=== PATIENT | male | born 1960 | race African-American/Black ===

== ENCOUNTER 2018-05-22 22:08 | Inpatient (IN) | payer MEDICARE, MEDICAID ==
[~2018-05-22] VITALS: Ht 190.5 cm; Wt 104.3 kg
[~2018-05-22 22:08] MED LIST: ASPIRIN81 MG ORAL; DIOVAN160 MG ORAL; ISENTRESS400 MG ORAL; SEROQUEL200 MG ORAL; TRUVADA 200 MG1 EAC1 ORAL
--- NOTE | 2018-05-22 22:27 | Emergency Room Report ---
History of Present Illness General Chief Complaint: Medical Clearance Source: Patient Present Illness HPI Patient is a 57-year-old male presented after increased chest pain. Patient reports having onset of symptoms tonight after being arrested. About 2 hours prior to arrival. Patient reports having prior history of heart attack. He reports having a recent cocaine use. Patient is currently in custody with [employer]. Allergies: Coded Allergies: No Known Allergies (Verified , 11/17/08) Patient History Reviewed Nursing Documentation: PMH: Agreed; PSxH: Agreed Nursing Documentation-PMH Past Medical History: No History, Except For Hx Cardiac Problems: Yes Hx Hypertension: Yes Hx Cancer: No Hx Gastrointestinal Problems: No Hx Neurological Problems: No Review of Systems All Other Systems: negative except mentioned in HPI Physical Exam Vital Signs Date Time Temp Pulse Resp B/P (MAP) Pulse Ox O2 Delivery O2 Flow Rate FiO2 05/22/18 22:03 98.4 112 18 130/78 98 Room Air Sp02 EP Interpretation: reviewed, normal General Appearance: normal inspection, well appearing, no apparent distress, alert, GCS 15 Head: atraumatic ENT: normal ENT inspection, hearing grossly normal, normal voice Neck: normal inspection, full range of motion, supple, no bony tend Respiratory: normal inspection, lungs clear, normal breath sounds, no respiratory distress, no retraction, no wheezing Cardiovascular #1: regular rate, rhythm, no edema Gastrointestinal: normal inspection, normal bowel sounds, non tender, soft, no guarding, no hernia Genitourinary: no CVA tenderness Musculoskeletal: normal inspection, back normal, normal range of motion Neurologic: normal inspection, alert, oriented x3, responsive, machine plug shaper III-XII nml as tested, speech normal Psychiatric: normal inspection, judgement/insight normal, mood/affect normal Skin: normal inspection, normal color, no rash Medical Decision Making Diagnostic Impression: Primary Impression: Chest pain Additional Impressions: Non-STEMI (non-ST elevated myocardial infarction) Cocaine abuse ER Course Patient presented for chest pain. Differential diagnosis included but was not limited to acute coronary syndrome, pulmonary embolism, pneumonia, aortic dissection, shingles, pneumothorax, aortic dissection, esophageal rupture, pericarditis. Because of complexity of patient's case laboratory testing and imaging studies were ordered. EKG interpreted by me showed normal sinus rhythm with a rate of 102 with some inferior Q waves. There are no acute ST or T wave changes noted. Patient reports having prior myocardial infarction. He reports having recent cocaine use. Patient states he is currently a smoker. Patient was given breathing treatment as well as aspirin. Patient was noted to have some continued pain. He was given Ativan due to cocaine use. CT of chest was ordered. Repeat EKG showed normal sinus rhythm with some premature atrial contractions and market motion artifact. Patient's laboratory testing was notable for initially negative troponin. A repeat troponin showed some mild elevation. Patient will be admitted to the hospital for further evaluation and treatment of chest discomfort. Patient cannot be medically cleared at this time. Patient will be admitted for further monitoring. Dr. Irby was contacted for inpatient management due to need for inpatient monitoring and treatment. Labs Test 05/22/18 22:50 05/23/18 00:51 White Blood Count 7.8 K/UL (4.8-10.8) Red Blood Count 4.87 M/UL (4.70-6.10) Hemoglobin 14.2 G/DL (14.2-18.0) Hematocrit 43.5 % (42.0-52.0) Mean Corpuscular Volume 89 FL (80-99) Mean Corpuscular Hemoglobin 29.1 PG (27.0-31.0) Mean Corpuscular Hemoglobin Concent 32.6 G/DL (32.0-36.0) Red Cell Distribution Width 12.6 % (11.6-14.8) Platelet Count 206 K/UL (150-450) Mean Platelet Volume 9.0 FL (6.5-10.1) Neutrophils (%) (Auto) 72.0 % (45.0-75.0) Lymphocytes (%) (Auto) 18.5 % (20.0-45.0) Monocytes (%) (Auto) 6.3 % (1.0-10.0) Eosinophils (%) (Auto) 1.7 % (0.0-3.0) Basophils (%) (Auto) 1.6 % (0.0-2.0) Sodium Level 142 MMOL/L (136-145) Potassium Level 3.6 MMOL/L (3.5-5.1) Chloride Level 106 MMOL/L (98-107) Carbon Dioxide Level 25 MMOL/L (21-32) Anion Gap 11 mmol/L (5-15) Blood Urea Nitrogen 14 mg/dL (7-18) Creatinine 1.2 MG/DL (0.55-1.30) Estimat Glomerular Filtration Rate > 60 mL/min (>60) Glucose Level 97 MG/DL (74-106) Calcium Level 9.5 MG/DL (8.5-10.1) Total Bilirubin 0.5 MG/DL (0.2-1.0) Aspartate Amino Transf (AST/SGOT) 16 U/L (15-37) Alanine Aminotransferase (ALT/SGPT) 19 U/L (12-78) Alkaline Phosphatase 44 U/L (46-116) Total Creatine Kinase 177 U/L (26-308) Creatine Kinase MB 1.5 NG/ML (0.0-3.6) Creatine Kinase MB Relative Index 0.8 Total Protein 8.6 G/DL (6.4-8.2) Albumin 4.1 G/DL (3.4-5.0) Globulin 4.5 g/dL Albumin/Globulin Ratio 0.9 (1.0-2.7) Lipase 159 U/L (73-393) Troponin I 0.505 ng/mL (0.000-0.056) EKG Diagnostic Results Rate: normal Rhythm: NSR ST Segments: other - inferior q waves Last Vital Signs Date Time Temp Pulse Resp B/P (MAP) Pulse Ox O2 Delivery O2 Flow Rate FiO2 05/22/18 22:03 98.4 112 18 130/78 98 Room Air Status: unchanged Disposition: ADMITTED INPATIENT Condition: Serious Scripts Lisinopril (LISINOPRIL*) 5 Mg Tablet 5 MG ORAL DAILY for 30 Days, TAB Prov: Dontae Irby MD 05/27/18 Atorvastatin Calcium* (LIPITOR*) 20 Mg Tablet 20 MG ORAL BEDTIME for 30 Days, TAB Prov: Dontae Irby MD 05/27/18 Xander Rm MD May 22, 2018 22:27
[2018-05-22] MEDS ORDERED: LORazepam Inj 2mg/ml 1ml IV ONE (22:30)
--- NOTE | 2018-05-22 22:40 | NUR ---
ED Nurse Note: Blood sample collected and sent to Lab.
[2018-05-22 22:45] VITALS: BP 131/75
--- NOTE | 2018-05-22 23:08 | NUR ---
ED Nurse Note: Meds given as ordered.
[2018-05-22 23:17] LABS: BASOPHILS % (AUTO) 1.6 % (0.0-2.0); EOSINOPHILS % (AUTO) 1.7 % (0.0-3.0); HEMATOCRIT 43.5 % (42.0-52.0); HEMOGLOBIN 14.2 G/DL (14.2-18.0); LYMPHOCYTES % (AUTO) 18.5 % (20.0-45.0); MEAN CORPUSCULAR VOLUME 89 FL (80-99); MONOCYTES % (AUTO) 6.3 % (1.0-10.0); PLATELET COUNT 206 K/UL (150-450); RED BLOOD COUNT 4.87 M/UL (4.70-6.10); RED CELL DISTRIBUTION WIDTH 12.6 % (11.6-14.8); WHITE BLOOD COUNT 7.8 K/UL (4.8-10.8)
[2018-05-22 23:32] LABS: ANION GAP 11 mmol/L (5-15); BLOOD UREA NITROGEN 14 mg/dL (7-18); CALCIUM 9.5 MG/DL (8.5-10.1); CARBON DIOXIDE 25 MMOL/L (21-32); CHLORIDE 106 MMOL/L (98-107); CREATININE 1.2 MG/DL (0.55-1.30); POTASSIUM 3.6 MMOL/L (3.5-5.1); SODIUM 142 MMOL/L (136-145)
[2018-05-22 23:45] LABS: ALANINE AMINOTRANSFERASE 19 U/L (12-78); ALBUMIN 4.1 G/DL (3.4-5.0); ALBUMIN/GLOBULIN RATIO 0.9 (1.0-2.7); ALKALINE PHOSPHATASE 44 U/L (46-116); ASPARTATE AMINO TRANSFERASE 16 U/L (15-37); BILIRUBIN,TOTAL 0.5 MG/DL (0.2-1.0); CKMB 1.5 NG/ML (0.0-3.6); CREATINE KINASE 177 U/L (26-308)
[2018-05-23] MEDS ORDERED: Albuterol/Ipratropium 3ml neb HHN ONE (01:00)
--- NOTE | 2018-05-23 01:07 | NUR ---
ED Nurse Note: Repeat trop collected and sent to Lab.
[2018-05-23] MEDS ORDERED: Isovue-370 150ml vial INJ PRN (01:45)
[2018-05-23] MEDS ORDERED: QUETIAPINE FUMA50 MG ORAL (02:08)
[2018-05-23] MEDS ORDERED: ROZEREM8 MG PO (02:08)
--- NOTE | 2018-05-23 04:35 | NUR ---
TRANSFER TO FLOOR: Patient transferred to Tel/214 as ordered . Report given to Padmini/WILMA . Belongings sent with Pt and rechecked with RN.
[2018-05-23] MEDS ORDERED: Morphine Sulfate 2mg/ml Inj(IV/IM USE ONLY) IVP SCH (05:00)
[2018-05-23 06:49] LABS: CHOLESTEROL 120 MG/DL (< 200); HDL CHOLESTEROL 39 MG/DL (40-60); TRIGLYCERIDES 85 MG/DL (30-150)
--- NOTE | 2018-05-23 07:45 | NUR ---
NURSE NOTES: Received report from WILMA [place]. Patient is resting in bed with chest pain of 9/10 aching. Was given pain medication from previous nurse. Bed is in lowest position, 2 side rails up, and call light within reach. Breakfast was setup. Patient is SR 80s with pvc. Will follow up plan of care.
[2018-05-23 08:00] VITALS: BP 125/70
[2018-05-23] MEDS: Pantoprazole Inj IVP SCH (08:50)
[2018-05-23] MEDS: Heparin 5000 units/ml inj SUBQ SCH ×2 (08:58→22:08)
--- NOTE | 2018-05-23 09:20 | Diagnostic Imaging Report ---
Indication: Chest pain Technique: Continuous helical transaxial imaging of the chest was obtained from the thoracic inlet to the upper abdomen during rapid intravenous contrast administration. Arterial phase of enhancement obtained. Coronal 2-D reformats were also obtained and maximum intensity projection images in multiple planes. Study obtained in a Siemens sensation [address] Automatic Exposure Control was utilized. Total Dose length Product (DLP): 891.[address] Dose Index Volume (CTDIvol): 20.81 mGy Comparison: None Findings: Poor contrast bolus demonstrated. The pulmonary artery is not well opacified. There is no central pulmonary embolus. The aorta is notable for some mural calcium without evidence of dissection or aneurysm. The aorta is better opacified. Heart is unremarkable. There is breathing motion. Mild posterior basal atelectasis on the right noted. Hyperlucency noted within the lungs especially in the upper lobes. Visualized upper abdomen is unremarkable. Mild degenerative changes of the thoracic spine noted. IMPRESSION: No obvious central pulmonary embolus. Evaluation is limited due to poor bolus. No evidence of aortic dissection or aneurysm. Mild to moderate atherosclerotic disease noted. COPD/emphysema. [facility] has communicated the preliminary results to the Emergency Department. Their findings are largely concordant with this report. The CT scanner at [facility] is accredited by the [employer] and the scans are performed using dose optimization techniques as appropriate to a performed exam including Automatic Exposure control.
--- NOTE | 2018-05-23 11:48 | Diagnostic Imaging Report ---
Indication: Chest pain Comparison: 12/01/2011 A single view chest radiograph was obtained. Findings: No definite infiltrate or pulmonary vascular congestion identified. The heart is enlarged. The aorta is mildly enlarged consistent with atherosclerotic vascular disease. The bones are unremarkable. Impression: No acute disease
[2018-05-23 12:00] VITALS: BP 152/86
--- NOTE | 2018-05-23 12:17 | Infectious Diseases Prog Note ---
Assessment/Plan Problems: (1) HIV disease Assessment & Plan: will resume his home meds with biktarvy , and continue Bactrim for PJP prophylaxis , will screen him for syphilis , and order baseline viral load and CD4 counts , will screen for hepatitis too (2) Non-STEMI (non-ST elevated myocardial infarction) Assessment & Plan: continue tele monitor and troponin check, cardiology is following (3) Cocaine abuse Assessment & Plan: recommend counseling and rehabilitation Subjective Allergies: Coded Allergies: No Known Allergies (Verified , 11/17/08) Objective Vital Signs Last 24 Hour Vital Signs Date Time Temp Pulse Resp B/P (MAP) Pulse Ox O2 Delivery O2 Flow Rate FiO2 05/23/18 09:29 84 05/23/18 08:00 98.8 84 20 125/70 (88) 95 05/23/18 07:58 84 05/23/18 05:55 Room Air 05/23/18 04:35 98.3 103 20 132/74 99 Room Air 21 05/23/18 02:10 69 20 99 Room Air 21 05/23/18 02:02 78 20 99 Room Air 21 05/23/18 02:01 78 20 Room Air 05/22/18 22:45 106 18 Room Air 05/22/18 22:45 98.3 105 18 131/75 98 Room Air 05/22/18 22:03 98.4 112 18 130/78 98 Room Air Height (Feet): 6 Height (Inches): 3.00 Weight (Pounds): 230 Laboratory Tests Test 05/22/18 22:50 05/23/18 00:51 05/23/18 06:17 White Blood Count 7.8 K/UL (4.8-10.8) Red Blood Count 4.87 M/UL (4.70-6.10) Hemoglobin 14.2 G/DL (14.2-18.0) Hematocrit 43.5 % (42.0-52.0) Mean Corpuscular Volume 89 FL (80-99) Mean Corpuscular Hemoglobin 29.1 PG (27.0-31.0) Mean Corpuscular Hemoglobin Concent 32.6 G/DL (32.0-36.0) Red Cell Distribution Width 12.6 % (11.6-14.8) Platelet Count 206 K/UL (150-450) Mean Platelet Volume 9.0 FL (6.5-10.1) Neutrophils (%) (Auto) 72.0 % (45.0-75.0) Lymphocytes (%) (Auto) 18.5 % (20.0-45.0) L Monocytes (%) (Auto) 6.3 % (1.0-10.0) Eosinophils (%) (Auto) 1.7 % (0.0-3.0) Basophils (%) (Auto) 1.6 % (0.0-2.0) Sodium Level 142 MMOL/L (136-145) Potassium Level 3.6 MMOL/L (3.5-5.1) Chloride Level 106 MMOL/L (98-107) Carbon Dioxide Level 25 MMOL/L (21-32) Anion Gap 11 mmol/L (5-15) Blood Urea Nitrogen 14 mg/dL (7-18) Creatinine 1.2 MG/DL (0.55-1.30) Estimat Glomerular Filtration Rate > 60 mL/min (>60) Glucose Level 97 MG/DL (74-106) Calcium Level 9.5 MG/DL (8.5-10.1) Total Bilirubin 0.5 MG/DL (0.2-1.0) Aspartate Amino Transf (AST/SGOT) 16 U/L (15-37) Alanine Aminotransferase (ALT/SGPT) 19 U/L (12-78) Alkaline Phosphatase 44 U/L (46-116) L Total Creatine Kinase 177 U/L (26-308) Creatine Kinase MB 1.5 NG/ML (0.0-3.6) Creatine Kinase MB Relative Index 0.8 Troponin I 0.027 ng/mL (0.000-0.056) 0.505 ng/mL (0.000-0.056) 0.035 ng/mL (0.000-0.056) Total Protein 8.6 G/DL (6.4-8.2) H Albumin 4.1 G/DL (3.4-5.0) Globulin 4.5 g/dL Albumin/Globulin Ratio 0.9 (1.0-2.7) L Lipase 159 U/L (73-393) Hemoglobin A1c 5.7 % (4.3-6.0) Triglycerides Level 85 MG/DL (30-150) Cholesterol Level 120 MG/DL (< 200) LDL Cholesterol 69 mg/dL (<100) HDL Cholesterol 39 MG/DL (40-60) L Cholesterol/HDL Ratio 3.1 (3.3-4.4) L Current Medications Medications (Trade) Dose Ordered Sig/Sean Route PRN Reason Start Time Stop Time Status Last Admin Dose Admin Acetaminophen (Tylenol) 650 mg Q6H PRN ORAL Mild Pain/Temp > 100.5 05/23/18 05:30 06/22/18 05:29 Aspirin (ASA) 325 mg DAILY ORAL 05/23/18 09:00 06/22/18 08:59 05/23/18 08:51 Emtricitabine/ Tenofovir (Truvada 200/ 300mg) 1 tab DAILY ORAL 05/23/18 09:00 06/22/18 08:59 UNV Heparin Sodium (Porcine) (Heparin 5000 units/ml) 5,000 units EVERY 12 HOURS SUBQ 05/23/18 09:00 06/22/18 08:59 05/23/18 08:58 Iopamidol (Isovue-370 150ml) 150 ml NOW PRN INJ Radiology Procedure 05/23/18 01:45 05/25/18 01:32 Morphine Sulfate (Morphine Sulfate) 2 mg Q6H PRN IVP For Pain 05/23/18 05:30 05/30/18 05:29 Ondansetron HCl (Zofran) 4 mg Q6H PRN IVP Nausea & Vomiting 05/23/18 05:30 06/22/18 05:29 Pantoprazole (Protonix) 40 mg DAILY IVP 05/23/18 09:00 06/22/18 08:59 05/23/18 08:50 Temazepam (Restoril) 15 mg HSPRN PRN ORAL Insomnia 05/23/18 05:30 05/30/18 05:29 Mady Espino M.D. May 23, 2018 12:17
[2018-05-23] MEDS: Morphine Sulfate 4mg/ml Inj (IV USE ONLY) IVP PRN ×2 (13:38→22:09)
--- NOTE | 2018-05-23 13:45 | History & Physical ---
History and Physical History & Physicial seen and examined. Full Dictation completed Dontae Irby MD May 23, 2018 13:45
--- NOTE | 2018-05-23 13:46 | General Progress Note ---
Assessment/Plan Assessment/Plan S: I have pain O: complains of persistent pain in left shoulder and chest PHYSICAL EXAMINATION: HEAD AND NECK: Atraumatic and normocephalic. CHEST: Clear to auscultation. HEART: S1 and S2. Regular rate and rhythm. ABDOMEN: Soft. No organomegaly. MUSCULOSKELETAL: No gross focal motor deficit. NEUROLOGIC: The patient is awake, alert, and oriented x3. Meds: reviewed and reconciled ASSESSMENT: 1. Acute coronary syndrome, 2. Hypertension. 3. HIV. 4. GI and DVT prophylaxes. PLAN OF CARE: Pending echo and Cardiology eval Subjective Allergies: Coded Allergies: No Known Allergies (Verified , 11/17/08) Objective Last 24 Hour Vital Signs Date Time Temp Pulse Resp B/P (MAP) Pulse Ox O2 Delivery O2 Flow Rate FiO2 05/23/18 12:00 98.4 70 22 152/86 (108) 95 05/23/18 09:29 84 05/23/18 08:00 98.8 84 20 125/70 (88) 95 05/23/18 07:58 84 05/23/18 05:55 Room Air 05/23/18 04:35 98.3 103 20 132/74 99 Room Air 21 05/23/18 02:10 69 20 99 Room Air 21 05/23/18 02:02 78 20 99 Room Air 21 05/23/18 02:01 78 20 Room Air 05/22/18 22:45 106 18 Room Air 05/22/18 22:45 98.3 105 18 131/75 98 Room Air 05/22/18 22:03 98.4 112 18 130/78 98 Room Air Intake and Output 05/22/18 05/23/18 18:59 06:59 Intake Total 360 ml Balance 360 ml Intake Oral 360 ml Laboratory Tests 05/22/18 22:50: White Blood Count 7.8, Red Blood Count 4.87, Hemoglobin 14.2, Hematocrit 43.5, Mean Corpuscular Volume 89, Mean Corpuscular Hemoglobin 29.1, Mean Corpuscular Hemoglobin Concent 32.6, Red Cell Distribution Width 12.6, Platelet Count 206, Mean Platelet Volume 9.0, Neutrophils (%) (Auto) 72.0, Lymphocytes (%) (Auto) 18.5L, Monocytes (%) (Auto) 6.3, Eosinophils (%) (Auto) 1.7, Basophils (%) (Auto ) 1.6, Sodium Level 142, Potassium Level 3.6, Chloride Level 106, Carbon Dioxide Level 25, Anion Gap 11, Blood Urea Nitrogen 14, Creatinine 1.2, Estimat Glomerular Filtration Rate > 60, Glucose Level 97, Calcium Level 9.5, Total Bilirubin 0.5, Aspartate Amino Transf (AST/SGOT) 16, Alanine Aminotransferase ( ALT/SGPT) 19, Alkaline Phosphatase 44L, Total Creatine Kinase 177, Creatine Kinase MB 1.5, Creatine Kinase MB Relative Index 0.8, Troponin I 0.027, Total Protein 8.6H, Albumin 4.1, Globulin 4.5, Albumin/Globulin Ratio 0.9L, Lipase 159 05/23/18 00:51: Troponin I 0.505H 05/23/18 06:17: Troponin I 0.035, Hemoglobin A1c 5.7, Triglycerides Level 85, Cholesterol Level 120, LDL Cholesterol 69, HDL Cholesterol 39L, Cholesterol/HDL Ratio 3.1L Height (Feet): 6 Height (Inches): 3.00 Weight (Pounds): 230 Dontae Irby MD May 23, 2018 13:46
[2018-05-23 16:00] VITALS: BP 129/70
--- NOTE | 2018-05-23 16:53 | NUR ---
CASE MANAGEMENT:REVIEW BIBA FROM [facility] CC: CHEST PAIN PMH: STENT. HIV SI: ACS. NSTEMI. COCAINE ABUSE 98.4 112 18 130/78 98% ON RA TROPONIN(+) 0.505 IS: IV ATIVAN DUONEB HHN ASA PO CTA CHEST CXR : TO TELEMETRY INTERQUAL CRITERIA MET
--- NOTE | 2018-05-23 17:00 | Consultation ---
DATE OF CONSULTATION: 05/23/2018 INFECTIOUS DISEASE CONSULTATION: CONSULTING PHYSICIAN: Mady Espino M.D. REFERRING PHYSICIAN: Dontae Irby M.D. REASON FOR CONSULTATION: HIV care and medical management. HISTORY OF PRESENT ILLNESS: The patient is a 57-year-old male with past medical history of HIV since 1994 who is currently incarcerated was brought into [facility] emergency room for increasing chest pain, shortness of breath, and dizziness. The patient reported having onset of symptoms after being arrested. The patient had previously history of coronary artery disease and hypertension. He was recently using cocaine and currently he is in custody with [employer]. The patient was started recently on Biktarvy for his HIV care about 3 months ago and this medication seems not to be available in our facility, so Infectious Disease consultation was requested for HIV care and medical management. The patient denied any headache or blurry vision. No cough or shortness of breath. No nausea or vomiting. No diarrhea. REVIEW OF SYSTEMS: A 14-point of systems reviewed were all negative apart from the one I mentioned above in my History and Physical. PAST MEDICAL HISTORY: Significant for coronary artery disease, hypertension, HIV. PAST SURGICAL HISTORY: Negative, not on record. FAMILY HISTORY: Noncontributory. SOCIAL HISTORY: The patient lives at home with family. He has been using drugs recently, mainly cocaine and he has been arrested due to that and he is in custody with [employer] at this point. ALLERGIES: No known drug allergy. MEDICATIONS: He takes Biktarvy once daily and he is also on Bactrim. For the rest of his medications, please refer to MAR. LABORATORY DATA: Showed white count of 7.8, hemoglobin of 14.2, and platelet count of 206. BUN of 14 and creatinine of 1.2. AST of 16 and ALT of 19. Lipase of 159. IMAGING: Chest x-ray showed no acute disease. Chest CT angiogram with contrast showed no obvious central pulmonary embolus. No evidence of aortic dissection or aneurysm. [id number] atherosclerotic disease noted. COPD. Emphysema. PHYSICAL EXAMINATION: VITAL SIGNS: Temperature 98.4, pulse 70, respirations 22, blood pressure 152/86, and saturation 95% on room air. GENERAL: A middle-aged male, up in bed. Cuff to the side of the bed with guard on the door. He seems awake, alert, not in acute distress. HEENT: Normocephalic and atraumatic. Pupils are reactive to light equally. Pale sclerae. Moist oral mucosa. No thrush or exudate. NECK: Supple. No lymphadenopathy. CARDIOVASCULAR: Regular rate and rhythm. No murmur or gallop. LUNGS: Clear bilaterally. No wheezing or rhonchi. Normal breathing effort. ABDOMEN: Soft, nontender, and nondistended. Normal bowel sounds. No hepatosplenomegaly or ascites. No rebound. EXTREMITIES: No edema or cyanosis. SKIN: No rash. No hives. ASSESSMENT AND RECOMMENDATION: 1. HIV disease with low CD4 count. We will continue Biktarvy from his own medication, which he brought with him and stop Truvada, which was entered here in the system. We will screen the patient for syphilis and we will obtain his baseline CD4 count and viral load and we will follow closely while he is in the hospital. 2. Chest pain. Acute coronary syndrome. The patient will be monitored in the tele with serial cardiac enzymes. Cardiology will be following the patient. Further recommendation as per Cardiology. 3. Drug abuse with cocaine. Recommend counseling and rehabilitation. Thank you for the consult. ID will continue to follow. Please feel free to call with any question. Mady Espino M.D. DR: ASIM JOB#: [id number] CC:
--- NOTE | 2018-05-23 17:30 | NUR ---
NURSE NOTES: Spoke with the two officers from [facility]. States that patient is cleared from a flight risk after fingerprint and background check. The patient is responsible to go to court at a certain date. Patient is resting in bed.
--- NOTE | 2018-05-23 19:24 | NUR ---
HAND-OFF: Report given to WILMA Patricia. Endorsed plan of care.
[2018-05-23 20:00] VITALS: BP 131/71
--- NOTE | 2018-05-23 20:09 | Cardiology Progress Note ---
Assessment/Plan Assessment/Plan The patient is seen and examined, full consult note will be dictated. Objective Last 24 Hour Vital Signs Date Time Temp Pulse Resp B/P (MAP) Pulse Ox O2 Delivery O2 Flow Rate FiO2 05/23/18 20:00 98.3 72 17 131/71 (91) 100 05/23/18 20:00 79 05/23/18 16:00 98.3 67 20 129/70 (89) 99 05/23/18 15:12 69 05/23/18 14:08 98.4 05/23/18 12:00 98.4 70 22 152/86 (108) 95 05/23/18 09:29 84 05/23/18 09:00 Room Air 05/23/18 08:00 98.8 84 20 125/70 (88) 95 05/23/18 07:58 84 05/23/18 05:55 Room Air 05/23/18 04:35 98.3 103 20 132/74 99 Room Air 21 05/23/18 02:10 69 20 99 Room Air 21 05/23/18 02:02 78 20 99 Room Air 21 05/23/18 02:01 78 20 Room Air 05/22/18 22:45 106 18 Room Air 05/22/18 22:45 98.3 105 18 131/75 98 Room Air 05/22/18 22:03 98.4 112 18 130/78 98 Room Air Intake and Output 05/22/18 05/23/18 19:00 07:00 Intake Total 360 ml Balance 360 ml Intake Oral 360 ml Laboratory Tests Test 05/22/18 22:50 05/23/18 00:51 05/23/18 06:17 05/23/18 14:30 White Blood Count 7.8 K/UL (4.8-10.8) Red Blood Count 4.87 M/UL (4.70-6.10) Hemoglobin 14.2 G/DL (14.2-18.0) Hematocrit 43.5 % (42.0-52.0) Mean Corpuscular Volume 89 FL (80-99) Mean Corpuscular Hemoglobin 29.1 PG (27.0-31.0) Mean Corpuscular Hemoglobin Concent 32.6 G/DL (32.0-36.0) Red Cell Distribution Width 12.6 % (11.6-14.8) Platelet Count 206 K/UL (150-450) Mean Platelet Volume 9.0 FL (6.5-10.1) Neutrophils (%) (Auto) 72.0 % (45.0-75.0) Lymphocytes (%) (Auto) 18.5 % (20.0-45.0) L Monocytes (%) (Auto) 6.3 % (1.0-10.0) Eosinophils (%) (Auto) 1.7 % (0.0-3.0) Basophils (%) (Auto) 1.6 % (0.0-2.0) Sodium Level 142 MMOL/L (136-145) Potassium Level 3.6 MMOL/L (3.5-5.1) Chloride Level 106 MMOL/L (98-107) Carbon Dioxide Level 25 MMOL/L (21-32) Anion Gap 11 mmol/L (5-15) Blood Urea Nitrogen 14 mg/dL (7-18) Creatinine 1.2 MG/DL (0.55-1.30) Estimat Glomerular Filtration Rate > 60 mL/min (>60) Glucose Level 97 MG/DL (74-106) Calcium Level 9.5 MG/DL (8.5-10.1) Total Bilirubin 0.5 MG/DL (0.2-1.0) Aspartate Amino Transf (AST/SGOT) 16 U/L (15-37) Alanine Aminotransferase (ALT/SGPT) 19 U/L (12-78) Alkaline Phosphatase 44 U/L (46-116) L Total Creatine Kinase 177 U/L (26-308) Creatine Kinase MB 1.5 NG/ML (0.0-3.6) Creatine Kinase MB Relative Index 0.8 Troponin I 0.027 ng/mL (0.000-0.056) 0.505 ng/mL (0.000-0.056) 0.035 ng/mL (0.000-0.056) 0.029 ng/mL (0.000-0.056) Total Protein 8.6 G/DL (6.4-8.2) H Albumin 4.1 G/DL (3.4-5.0) Globulin 4.5 g/dL Albumin/Globulin Ratio 0.9 (1.0-2.7) L Lipase 159 U/L (73-393) Hemoglobin A1c 5.7 % (4.3-6.0) Triglycerides Level 85 MG/DL (30-150) Cholesterol Level 120 MG/DL (< 200) LDL Cholesterol 69 mg/dL (<100) HDL Cholesterol 39 MG/DL (40-60) L Cholesterol/HDL Ratio 3.1 (3.3-4.4) L Ki Alan MD May 23, 2018 20:09
--- NOTE | 2018-05-23 20:48 | NUR ---
NURSE NOTES: recvd pt. Pt is sleeping in bed. Pt is on room air with no sign of sob or resp distress. IV site is Right AC 20g locked and Left FA 20g locked. Per Dr Etienne, pt will have stress test tomorrow- NPO at midnight. He also ordered lisinopril 5mg daily starting tonight
[2018-05-23] MEDS: Lisinopril 2.5mg tab ORAL SCH (22:06)
--- NOTE | 2018-05-23 23:42 | Consultation ---
History of Present Illness General Chief Complaint: Medical Clearance Present Illness HPI 57-year-old male with history of HIV and and coronary artery disease, who presented with acute onset of chest pain. the pt was hand cuffed to bed. he was arrested for domestic violence. the pt stated that he take seroquel and has anxiety and depression Allergies: Coded Allergies: No Known Allergies (Verified , 11/17/08) Medication History Scheduled Aspirin* (Aspirin*), 81 MG ORAL DAILY, (Reported) Emtricitabine/Tenofovir 200-300MG* (Truvada 200-300MG*), 1 TAB ORAL DAILY, ( Reported) Quetiapine Fumarate* (Seroquel*), 200 MG ORAL DAILY, (Reported) Quetiapine Fumarate* (Quetiapine Fumarate*), 100 MG ORAL DAILY, (Reported) Raltegravir (Isentress), 400 MG ORAL BID, (Reported) Valsartan (Diovan), 160 MG ORAL DAILY, (Reported) Miscellaneous Medications Ramelteon (Rozerem), 8 MG PO, (Reported) Patient History History Provided By: Patient, Medical Record, PMD Healthcare decision maker Resuscitation status Full Code Advanced Directive on File Past Medical/Surgical History Past Medical/Surgical History: (1) Chest pain (2) HIV disease (3) Non-STEMI (non-ST elevated myocardial infarction) (4) Cocaine abuse Review of Systems Psychiatric: Reports: prior hx, anxiety, depressed feelings, emotional problems Physical Exam General Appearance: WD/WN, no apparent distress, alert Neurologic: oriented x 3, responsive, depressed affect Last 24 Hour Vital Signs Date Time Temp Pulse Resp B/P (MAP) Pulse Ox O2 Delivery O2 Flow Rate FiO2 05/23/18 22:06 131/71 05/23/18 20:00 98.3 72 17 131/71 (91) 100 05/23/18 20:00 79 05/23/18 16:00 98.3 67 20 129/70 (89) 99 05/23/18 15:12 69 05/23/18 14:08 98.4 05/23/18 12:00 98.4 70 22 152/86 (108) 95 05/23/18 09:29 84 05/23/18 09:00 Room Air 05/23/18 08:00 98.8 84 20 125/70 (88) 95 05/23/18 07:58 84 1/17/19 05:55 Room Air 05/23/18 04:35 98.3 103 20 132/74 99 Room Air 21 05/23/18 02:10 69 20 99 Room Air 21 05/23/18 02:02 78 20 99 Room Air 21 05/23/18 02:01 78 20 Room Air Intake and Output 05/22/18 05/23/18 19:00 07:00 Intake Total 360 ml Balance 360 ml Intake Oral 360 ml Laboratory Tests Test 05/23/18 00:51 05/23/18 06:17 05/23/18 14:30 Troponin I 0.505 ng/mL (0.000-0.056) 0.035 ng/mL (0.000-0.056) 0.029 ng/mL (0.000-0.056) Hemoglobin A1c 5.7 % (4.3-6.0) Triglycerides Level 85 MG/DL (30-150) Cholesterol Level 120 MG/DL (< 200) LDL Cholesterol 69 mg/dL (<100) HDL Cholesterol 39 MG/DL (40-60) L Cholesterol/HDL Ratio 3.1 (3.3-4.4) L Height (Feet): 6 Height (Inches): 3.00 Weight (Pounds): 230 Medications Current Medications Medications (Trade) Dose Ordered Sig/Sean Route PRN Reason Start Time Stop Time Status Last Admin Dose Admin Acetaminophen (Tylenol) 650 mg Q6H PRN ORAL Mild Pain/Temp > 100.5 05/23/18 05:30 06/22/18 05:29 Aspirin (ASA) 325 mg DAILY ORAL 05/23/18 09:00 06/22/18 08:59 05/23/18 08:51 Heparin Sodium (Porcine) (Heparin 5000 units/ml) 5,000 units EVERY 12 HOURS SUBQ 05/23/18 09:00 06/22/18 08:59 05/23/18 22:08 Iopamidol (Isovue-370 150ml) 150 ml NOW PRN INJ Radiology Procedure 05/23/18 01:45 05/25/18 01:32 Lisinopril (Zestril) 5 mg DAILY ORAL 05/23/18 20:30 06/22/18 20:29 05/23/18 22:06 Morphine Sulfate (Morphine Sulfate) 2 mg Q6H PRN IVP For Pain 05/23/18 05:30 05/30/18 05:29 05/23/18 22:09 Ondansetron HCl (Zofran) 4 mg Q6H PRN IVP Nausea & Vomiting 05/23/18 05:30 06/22/18 05:29 Pantoprazole (Protonix) 40 mg DAILY IVP 05/23/18 09:00 06/22/18 08:59 05/23/18 08:50 Temazepam (Restoril) 15 mg HSPRN PRN ORAL Insomnia 05/23/18 05:30 05/30/18 05:29 Assessment/Plan Problem List: (1) Bipolar disorder with depression ICD Codes: F31.30 - Bipolar disorder, current episode depressed, mild or moderate severity, unspecified SNOMED: 10419014 (2) Cocaine abuse ICD Codes: F14.10 - Cocaine abuse, uncomplicated SNOMED: 96499483 Assessment/Plan quin johnson provided the pt with lynn/Li Miles MD May 23, 2018 23:42
[2018-05-24] VITALS: BP 151/75
--- NOTE | 2018-05-24 | NUR ---
NURSE NOTES: Pt has been NPO for stress test, pt verbalized understanding.
[2018-05-24 04:00] VITALS: BP 137/78
[2018-05-24] MEDS: Morphine Sulfate 4mg/ml Inj (IV USE ONLY) IVP PRN ×3 (04:11→17:09)
--- NOTE | 2018-05-24 07:03 | NUR ---
NURSE NOTES: Arpan Irby to notify that pt is missing home med Vicktarvey for HIV. If Vicktarvey not available, Travata can also be taken
--- NOTE | 2018-05-24 07:05 | NUR ---
HAND-OFF: Report given to Connie DILLON.
--- NOTE | 2018-05-24 07:47 | NUR ---
NURSE NOTES: Received report from WILMA Patricia. Pt is sitting up in bed. Bed is in lowest position, side rails up X2, and call light is within reach. Will continue to monitor.
[2018-05-24 07:48] LABS: EOSINOPHILS % (AUTO) 5.4 % (0.0-3.0); HEMATOCRIT 38.2 % (42.0-52.0); HEMOGLOBIN 12.6 G/DL (14.2-18.0); LYMPHOCYTES % (AUTO) 31.7 % (20.0-45.0); MEAN CORPUSCULAR VOLUME 89 FL (80-99); MONOCYTES % (AUTO) 9.3 % (1.0-10.0); NEUTROPHILS % (AUTO) 51.6 % (45.0-75.0); PLATELET COUNT 198 K/UL (150-450); RED BLOOD COUNT 4.29 M/UL (4.70-6.10); RED CELL DISTRIBUTION WIDTH 13.1 % (11.6-14.8); WHITE BLOOD COUNT 3.7 K/UL (4.8-10.8)
[2018-05-24 08:00] VITALS: BP 149/88
[2018-05-24] MEDS ORDERED: Lexiscan 0.4mg/5ml syringe IV ONE (08:15)
--- NOTE | 2018-05-24 08:30 | History and Physical Report ---
DATE OF ADMISSION: 05/23/2018 SOURCE OF INFORMATION: Patient and EMR. HISTORY OF PRESENT ILLNESS: The patient is a 57-year-old male with history of HIV and and coronary artery disease, who presented with acute onset of chest pain. pain is localized in precordial area and radiation to left shoulder. Positive for dizziness. Negative for diarrhea and constipation. Negative for shortness of breath. PAST MEDICAL HISTORY: Coronary artery disease, HIV. PAST SURGICAL HISTORY: Stent placements reportedly in 2002. MEDICATIONS: Current hospital medications including temazepam, Truvada. ALLERGIES: NKDA. FAMILY HISTORY: Reviewed and noncontributory. REVIEW OF SYSTEMS: All 12 elements review of systems reviewed, pertinent negative and positive as above. PHYSICAL EXAMINATION: VITAL SIGNS: Blood pressure 135/80, temperature 98.2, pulse oximetry 98% on room air, and pulse rate 110. HEAD AND NECK: Atraumatic and normocephalic. CHEST: Clear to auscultation. HEART: S1 and S2. Regular rate and rhythm. ABDOMEN: Soft. No organomegaly. MUSCULOSKELETAL: No gross focal motor deficit. NEUROLOGIC: The patient is awake, alert, and oriented x3. LABORATORY AND DIAGNOSTIC DATA: Labs dated 05/22/2018, WBC 7.8, hemoglobin 14.2, platelets 206. Sodium 142, potassium 3.6. Troponin x1 negative. LDL 69. Chest x-ray dated 05/23/[address] scan of the chest dated 05/23/2018 shows COPD changes, otherwise unremarkable. ASSESSMENT: 1. Acute coronary syndrome. 2. Hypertension. 3. HIV. 4. GI and DVT prophylaxes. PLAN OF CARE: 1. We will do the serial troponin levels, Echo 2. admission to telemetry unit. 3. Cardiology, Dr. Alan consulted. Dontae Irby M.D. DR: Sachin JOB#: [id number] CC: AMEYA
[2018-05-24 08:32] LABS: ALANINE AMINOTRANSFERASE 16 U/L (12-78); ALBUMIN/GLOBULIN RATIO 0.8 (1.0-2.7); ALKALINE PHOSPHATASE 38 U/L (46-116); ANION GAP 7 mmol/L (5-15); ASPARTATE AMINO TRANSFERASE 14 U/L (15-37); BILIRUBIN,TOTAL 0.4 MG/DL (0.2-1.0); BLOOD UREA NITROGEN 18 mg/dL (7-18); CALCIUM 8.8 MG/DL (8.5-10.1); CARBON DIOXIDE 26 MMOL/L (21-32); CHLORIDE 108 MMOL/L (98-107); CREATININE 1.1 MG/DL (0.55-1.30); POTASSIUM 4.2 MMOL/L (3.5-5.1); SODIUM 141 MMOL/L (136-145)
[2018-05-24] MEDS: Lisinopril 2.5mg tab ORAL SCH (08:41)
[2018-05-24] MEDS: Pantoprazole Inj IVP SCH (08:42)
[2018-05-24] MEDS: Heparin 5000 units/ml inj SUBQ SCH ×2 (08:45→21:00)
[2018-05-24 12:00] VITALS: BP 133/80
[2018-05-24] MEDS ORDERED: Lexiscan 0.4mg/5ml syringe IV PRN (12:00)
--- NOTE | 2018-05-24 13:39 | General Progress Note ---
Assessment/Plan Problem List: (1) Bipolar disorder with depression ICD Codes: F31.30 - Bipolar disorder, current episode depressed, mild or moderate severity, unspecified SNOMED: 10241595 (2) Cocaine abuse ICD Codes: F14.10 - Cocaine abuse, uncomplicated SNOMED: 32272932 Status: stable, progressing Assessment/Plan cont seroquel provided the pt with ro/st Subjective Neurologic/Psychiatric: Reports: anxiety, depressed, emotional problems Allergies: Coded Allergies: No Known Allergies (Verified , 11/17/08) Objective Last 24 Hour Vital Signs Date Time Temp Pulse Resp B/P (MAP) Pulse Ox O2 Delivery O2 Flow Rate FiO2 05/24/18 12:00 98.9 63 21 133/80 (97) 100 05/24/18 12:00 67 05/24/18 09:00 Room Air 05/24/18 08:00 67 05/24/18 08:00 98.2 70 22 149/88 (108) 100 05/24/18 04:42 98.2 05/24/18 04:00 66 05/24/18 04:00 96.5 66 16 137/78 (97) 96 05/24/18 00:00 98.2 71 18 151/75 (100) 98 05/24/18 00:00 76 05/23/18 22:06 131/71 05/23/18 21:00 Room Air 05/23/18 20:00 98.3 72 17 131/71 (91) 100 05/23/18 20:00 79 05/23/18 16:00 98.3 67 20 129/70 (89) 99 05/23/18 15:12 69 Intake and Output 05/23/18 05/24/18 18:59 06:59 Output Total 800 ml Balance -800 ml Output Urine Total 800 ml Laboratory Tests 05/23/18 14:30: Troponin I 0.029 05/24/18 05:32: White Blood Count 3.7#L, Red Blood Count 4.29L, Hemoglobin 12.6L, Hematocrit 38.2L, Mean Corpuscular Volume 89, Mean Corpuscular Hemoglobin 29.4, Mean Corpuscular Hemoglobin Concent 33.1, Red Cell Distribution Width 13.1, Platelet Count 198, Mean Platelet Volume 8.9, Neutrophils (%) (Auto) 51.6, Lymphocytes (% ) (Auto) 31.7, Monocytes (%) (Auto) 9.3, Eosinophils (%) (Auto) 5.4H, Basophils (%) (Auto) 2.0, Sodium Level 141, Potassium Level 4.2, Chloride Level 108H, Carbon Dioxide Level 26, Anion Gap 7, Blood Urea Nitrogen 18, Creatinine 1.1, Estimat Glomerular Filtration Rate > 60, Glucose Level 105, Calcium Level 8.8, Total Bilirubin 0.4, Aspartate Amino Transf (AST/SGOT) 14L, Alanine Aminotransferase (ALT/SGPT) 16, Alkaline Phosphatase 38L, Total Protein 6.8, Albumin 3.0L, Globulin 3.8, Albumin/Globulin Ratio 0.8L Height (Feet): 6 Height (Inches): 3.00 Weight (Pounds): 230 General Appearance: alert Neurologic: oriented x 3, responsive, depressed affect Li Torres MD May 24, 2018 13:39
[2018-05-24 16:00] VITALS: BP 128/75
--- NOTE | 2018-05-24 16:17 | Diagnostic Imaging Report ---
Indication: chest pain Technique: The study was conducted under the supervision of a warp spinner. lexiscan (regadenoson) infusion over 10 seconds followed by intravenous administration of 30.2 mCi of technetium 99m Myoview was performed. Three plane SPECT imaging of the heart was then performed. A resting study was performed as part of the one-day protocol with 10 mCi of technetium 99m myoview injected intravenously at that time. Three plane SPECT imaging of the heart was obtained. Comparison: None Clinical data: 1. Clinical response: Non ischemic 2. Electrocardiographic response: Non ischemic Findings: The myocardial perfusion scan demonstrates hypoperfusion in the inferior wall and apex. This appears to be relatively fixed and is consistent with a myocardial infarct in the inferior wall. There is a component of contiguous inferolateral segment reversibility suggestive of lev-infarct ischemia. There is a reversible segments involving the septum which may be due to ischemia. LVEF estimated at 32% IMPRESSION: Possible myocardial ischemia involving the septum. Correlate clinically. Inferior wall/apical infarct. Suspected lev-infarct ischemia involving the inferolateral segment. LVEF 32%
--- NOTE | 2018-05-24 16:21 | General Progress Note ---
Assessment/Plan Assessment/Plan S: I have pain O: complains of persistent pain in left shoulder and chest PHYSICAL EXAMINATION: HEAD AND NECK: Atraumatic and normocephalic. CHEST: Clear to auscultation. HEART: S1 and S2. Regular rate and rhythm. ABDOMEN: Soft. No organomegaly. MUSCULOSKELETAL: No gross focal motor deficit. NEUROLOGIC: The patient is awake, alert, and oriented x3. Meds: reviewed and reconciled ASSESSMENT: 1. Acute coronary syndrome, 2. Hypertension. 3. HIV. 4. GI and DVT prophylaxes. PLAN OF CARE: Pending Cardiac stress test Subjective Allergies: Coded Allergies: No Known Allergies (Verified , 11/17/08) Objective Last 24 Hour Vital Signs Date Time Temp Pulse Resp B/P (MAP) Pulse Ox O2 Delivery O2 Flow Rate FiO2 05/24/18 12:00 98.9 63 21 133/80 (97) 100 05/24/18 12:00 67 05/24/18 09:00 Room Air 05/24/18 08:00 67 05/24/18 08:00 98.2 70 22 149/88 (108) 100 05/24/18 04:42 98.2 05/24/18 04:00 66 05/24/18 04:00 96.5 66 16 137/78 (97) 96 05/24/18 00:00 98.2 71 18 151/75 (100) 98 05/24/18 00:00 76 05/23/18 22:06 131/71 05/23/18 21:00 Room Air 05/23/18 20:00 98.3 72 17 131/71 (91) 100 05/23/18 20:00 79 Intake and Output 05/23/18 05/24/18 18:59 06:59 Output Total 800 ml Balance -800 ml Output Urine Total 800 ml Laboratory Tests 05/24/18 05:32: White Blood Count 3.7#L, Red Blood Count 4.29L, Hemoglobin 12.6L, Hematocrit 38.2L, Mean Corpuscular Volume 89, Mean Corpuscular Hemoglobin 29.4, Mean Corpuscular Hemoglobin Concent 33.1, Red Cell Distribution Width 13.1, Platelet Count 198, Mean Platelet Volume 8.9, Neutrophils (%) (Auto) 51.6, Lymphocytes (% ) (Auto) 31.7, Monocytes (%) (Auto) 9.3, Eosinophils (%) (Auto) 5.4H, Basophils (%) (Auto) 2.0, Sodium Level 141, Potassium Level 4.2, Chloride Level 108H, Carbon Dioxide Level 26, Anion Gap 7, Blood Urea Nitrogen 18, Creatinine 1.1, Estimat Glomerular Filtration Rate > 60, Glucose Level 105, Calcium Level 8.8, Total Bilirubin 0.4, Aspartate Amino Transf (AST/SGOT) 14L, Alanine Aminotransferase (ALT/SGPT) 16, Alkaline Phosphatase 38L, Total Protein 6.8, Albumin 3.0L, Globulin 3.8, Albumin/Globulin Ratio 0.8L Height (Feet): 6 Height (Inches): 3.00 Weight (Pounds): 230 Dontae Irby MD May 24, 2018 16:21
--- NOTE | 2018-05-24 16:32 | Infectious Diseases Prog Note ---
Assessment/Plan Problems: (1) HIV disease Assessment & Plan: patient is unable to get his HIV home meds with biktarvy , so we will start him on Truvada and dolutegravir , and continue Bactrim for PJP prophylaxis , await screening him for syphilis , and viral load and CD4 counts , will screen for hepatitis too (2) Non-STEMI (non-ST elevated myocardial infarction) Assessment & Plan: continue tele monitor and troponin check, cardiology is following (3) Cocaine abuse Assessment & Plan: recommend counseling and rehabilitation Subjective Constitutional: Reports: no symptoms HEENT: Reports: no symptoms Respiratory: Reports: shortness of breath Breasts: Reports: no symptoms Cardiovascular: Reports: chest pain Gastrointestinal/Abdominal: Reports: no symptoms Genitourinary: Reports: no symptoms Neurologic: Reports: no symptoms Psychiatric: Reports: no symptoms Skin: Reports: no symptoms Endocrine: Reports: no symptoms Hematologic: Reports: no symptoms Musculoskeletal: Reports: no symptoms Allergies: Coded Allergies: No Known Allergies (Verified , 11/17/08) Objective Vital Signs Last 24 Hour Vital Signs Date Time Temp Pulse Resp B/P (MAP) Pulse Ox O2 Delivery O2 Flow Rate FiO2 05/24/18 12:00 98.9 63 21 133/80 (97) 100 05/24/18 12:00 67 05/24/18 09:00 Room Air 05/24/18 08:00 67 05/24/18 08:00 98.2 70 22 149/88 (108) 100 05/24/18 04:42 98.2 05/24/18 04:00 66 05/24/18 04:00 96.5 66 16 137/78 (97) 96 05/24/18 00:00 98.2 71 18 151/75 (100) 98 05/24/18 00:00 76 05/23/18 22:06 131/71 05/23/18 21:00 Room Air 05/23/18 20:00 98.3 72 17 131/71 (91) 100 05/23/18 20:00 79 Height (Feet): 6 Height (Inches): 3.00 Weight (Pounds): 230 General Appearance: WD/WN, no acute distress HEENT: normocephalic, atraumatic, anicteric, mucous membranes moist, PERRL Respiratory/Chest: chest wall non-tender, lungs clear, normal breath sounds, no respiratory distress, no accessory muscle use Cardiovascular: normal peripheral pulses, normal rate, regular rhythm, no gallop/murmur, no JVD Abdomen: normal bowel sounds, soft, non tender, no organomegaly, non distended , no mass, no scars Extremities: no cyanosis, no clubbing Skin: no rash, no lesions, no ulcers Neurologic/Psychiatric: alert, oriented x 3, responsive Lymphatic: no neck adenopathy, no groin adenopathy Musculoskeletal: normal muscle bulk, no effusion Laboratory Tests Test 05/24/18 05:32 White Blood Count 3.7 K/UL (4.8-10.8) #L Red Blood Count 4.29 M/UL (4.70-6.10) L Hemoglobin 12.6 G/DL (14.2-18.0) L Hematocrit 38.2 % (42.0-52.0) L Mean Corpuscular Volume 89 FL (80-99) Mean Corpuscular Hemoglobin 29.4 PG (27.0-31.0) Mean Corpuscular Hemoglobin Concent 33.1 G/DL (32.0-36.0) Red Cell Distribution Width 13.1 % (11.6-14.8) Platelet Count 198 K/UL (150-450) Mean Platelet Volume 8.9 FL (6.5-10.1) Neutrophils (%) (Auto) 51.6 % (45.0-75.0) Lymphocytes (%) (Auto) 31.7 % (20.0-45.0) Monocytes (%) (Auto) 9.3 % (1.0-10.0) Eosinophils (%) (Auto) 5.4 % (0.0-3.0) H Basophils (%) (Auto) 2.0 % (0.0-2.0) Sodium Level 141 MMOL/L (136-145) Potassium Level 4.2 MMOL/L (3.5-5.1) Chloride Level 108 MMOL/L (98-107) H Carbon Dioxide Level 26 MMOL/L (21-32) Anion Gap 7 mmol/L (5-15) Blood Urea Nitrogen 18 mg/dL (7-18) Creatinine 1.1 MG/DL (0.55-1.30) Estimat Glomerular Filtration Rate > 60 mL/min (>60) Glucose Level 105 MG/DL (74-106) Calcium Level 8.8 MG/DL (8.5-10.1) Total Bilirubin 0.4 MG/DL (0.2-1.0) Aspartate Amino Transf (AST/SGOT) 14 U/L (15-37) L Alanine Aminotransferase (ALT/SGPT) 16 U/L (12-78) Alkaline Phosphatase 38 U/L (46-116) L Total Protein 6.8 G/DL (6.4-8.2) Albumin 3.0 G/DL (3.4-5.0) L Globulin 3.8 g/dL Albumin/Globulin Ratio 0.8 (1.0-2.7) L Current Medications Medications (Trade) Dose Ordered Sig/Sean Route PRN Reason Start Time Stop Time Status Last Admin Dose Admin Acetaminophen (Tylenol) 650 mg Q6H PRN ORAL Mild Pain/Temp > 100.5 05/23/18 05:30 06/22/18 05:29 Aspirin (ASA) 325 mg DAILY ORAL 05/23/18 09:00 06/22/18 08:59 05/24/18 08:42 Heparin Sodium (Porcine) (Heparin 5000 units/ml) 5,000 units EVERY 12 HOURS SUBQ 05/23/18 09:00 06/22/18 08:59 05/24/18 08:45 Iopamidol (Isovue-370 150ml) 150 ml NOW PRN INJ Radiology Procedure 05/23/18 01:45 05/25/18 01:32 Lisinopril (Zestril) 5 mg DAILY ORAL 05/23/18 20:30 06/22/18 20:29 05/23/18 22:06 Morphine Sulfate (Morphine Sulfate) 2 mg Q6H PRN IVP For Pain 05/23/18 05:30 05/30/18 05:29 05/24/18 10:31 Ondansetron HCl (Zofran) 4 mg Q6H PRN IVP Nausea & Vomiting 05/23/18 05:30 06/22/18 05:29 Pantoprazole (Protonix) 40 mg DAILY IVP 05/23/18 09:00 06/22/18 08:59 05/24/18 08:42 Regadenoson (Lexiscan) 0.4 mg ONCE PRN IV Stress test 05/24/18 12:00 05/24/18 23:59 Temazepam (Restoril) 15 mg HSPRN PRN ORAL Insomnia 05/23/18 05:30 05/30/18 05:29 05/23/18 23:54 Mady Espino M.D. May 24, 2018 16:32
--- NOTE | 2018-05-24 16:34 | NUR ---
CASE MANAGEMENT:REVIEW 05/24/18 SI: ACS. HTN. HIV 98.9 67 21 133/80 100% O RA H/H-12.6.38.2 ALB-3.0 IS: IV LEXISCAN X1 HAART REGIMEN BACTRIM PO QD LISINOPRIL PO QD ASA PO QD IV PROTONIX QD HEPARIN SQ Q12 IV MORPHINE PRN PAIN : TELEMETRY STATUS PLAN: STRESS TEST FOR TODAY
[2018-05-24] MEDS ORDERED: Bactrim SS Tab ORAL SCH (18:00)
--- NOTE | 2018-05-24 19:08 | NUR ---
HAND-OFF: Report given to WILMA Echols. Plan of care endorsed.
[2018-05-24 20:00] VITALS: BP 129/71
--- NOTE | 2018-05-24 20:00 | NUR ---
NURSE NOTES: Pt awake/alert, in bed, breathing easily on room air, denies SOB and denies pain at this time. Vital signs stable with SR @ 72. IV access right forearm, flushed with 10 ml NS and locked. Bed left in low position, side rails up x 2 and call light left near pt's hand.
--- NOTE | 2018-05-24 22:30 | Consultation ---
DATE OF CONSULTATION: 05/23/2018 CARDIOLOGY CONSULTATION CONSULTING PHYSICIAN: Ki Alan M.D. REFERRING PHYSICIAN: Dr. Dontae Irby. REASON FOR CONSULTATION: Management of chest pain. HISTORY OF PRESENT ILLNESS: The patient is a very unfortunate 57-year-old gentleman, who presents to the hospital after being arrested due to recent cocaine use by the [employer]. The patient states that he started to feel chest pain in the left precordial area. No shortness of breath. The patient has had a history of coronary artery disease in the past. The patient also has history of hypertension. On arrival to the hospital, blood pressure was 130/78 mmHg and pulse of 112. Initial laboratory findings showed a troponin of 0.5. A 12-lead electrocardiogram was significant for sinus tachycardia, rate of 102 with inferior Q-waves, however, no acute ST and T-wave abnormalities. The patient was admitted to telemetry for further evaluation and management. Cardiology consultation was made at the request of Dr. Irby. PAST MEDICAL HISTORY: History of hypertension, history of coronary artery disease, and history of HIV disease. PAST SURGICAL HISTORY: None. ALLERGIES: No known drug allergies. MEDICATIONS: List of medications include aspirin 81 mg p.o. daily, Truvada 200-300 mg once daily, Seroquel 200 mg p.o. daily, Seroquel mg daily, Isentress 400 mg twice a day, Rozerem 8 mg p.o. daily, and Diovan 160 mg p.o. daily. SOCIAL HISTORY: Lives at home with family. He uses cocaine. REVIEW OF SYSTEMS: A 12-system review done essentially negative except what was mentioned in history of present illness. PHYSICAL EXAMINATION: VITAL SIGNS: Blood pressure at time of arrival to the hospital was 130/78, respirations 18, pulse 112, and temperature 98.4 degrees Fahrenheit. O2 saturation 98% on room air. GENERAL: The patient is a very unfortunate 57-year-old gentleman, in no apparent respiratory distress. Alert and oriented x4. HEENT: Atraumatic and normocephalic. Anicteric. Pupils are equal, round, and reactive to light and accommodation. Extraocular muscles intact. NECK: JVP less than 5 cm. No carotid bruits. Carotid upstrokes 2+ bilaterally. CARDIOVASCULAR: Normal S1 and S2. Regular rate and rhythm. No murmurs, gallops, or rubs. PMI is at fourth intercostal space in the mid clavicular line. LUNGS: Clear to auscultation bilaterally. ABDOMEN: Soft, nontender, and nondistended. No hepatosplenomegaly. Positive bowel sounds. EXTREMITIES: No evidence of edema, clubbing, or cyanosis. LABORATORY FINDINGS: WBC is 7.8, hemoglobin 14.2, hematocrit 43.5, and platelet count 206,000. Chemistry showed sodium 142, potassium 3.6, chloride 106, bicarbonate 25, BUN 14, and creatinine 1.2. Glucose is 97. Calcium is 9.5. Troponin I 0.027. DIAGNOSTIC DATA: Chest x-ray showed no acute cardiopulmonary disease. 2-D echocardiography done in this facility showed normal LV systolic function with LVEF approximately 55%, mild to moderate LVH, mild biatrial enlargement, moderate aortic regurgitation, mild mitral regurgitation, grade 1 LV diastolic dysfunction, and RVSP of 37 mmHg consistent with mild pulmonary hypertension. ASSESSMENT AND PLAN: The patient is a very unfortunate 57-year-old gentleman seen in cardiology consultation, 1. Chest pain following cocaine use. A 12-lead electrocardiogram does not show any acute ST and T-wave abnormalities. First troponin I level within normal limits. The patient will benefit from myocardial perfusion imaging study to rule out obstructive CAD. 2. History of HIV disease. 3. History of cocaine abuse. I would like to thank, Dr. Irby, for allowing me to participate in the care of this patient. Ki Alan M.D. DR: CRYSTAL JOB#: [id number] CC:
--- NOTE | 2018-05-24 23:44 | Cardiology Progress Note ---
Assessment/Plan Assessment/Plan 1. Chest pain following cocaine use. A 12-lead electrocardiogram does not show any acute ST and T-wave abnormalities. First troponin I level within normal limits. Myocardial perfusion imaging study showed no evidence of ischemia. 2. History of HIV disease. 3. History of cocaine abuse, avoid B-blockers. 4. Dyslipidemia Subjective Subjective Sinus rhythm at rate of 64. Objective Last 24 Hour Vital Signs Date Time Temp Pulse Resp B/P (MAP) Pulse Ox O2 Delivery O2 Flow Rate FiO2 05/24/18 16:00 64 05/24/18 16:00 97.4 68 20 128/75 (92) 100 05/24/18 12:00 98.9 63 21 133/80 (97) 100 05/24/18 12:00 67 05/24/18 09:00 Room Air 05/24/18 08:00 67 05/24/18 08:00 98.2 70 22 149/88 (108) 100 05/24/18 04:42 98.2 05/24/18 04:00 66 05/24/18 04:00 96.5 66 16 137/78 (97) 96 05/24/18 00:00 98.2 71 18 151/75 (100) 98 05/24/18 00:00 76 Intake and Output 05/23/18 05/24/18 19:00 07:00 Output Total 800 ml Balance -800 ml Output Urine Total 800 ml 2D Echo: EF 55%, JACQUELIN, Mild LVH, Mo AR, MIld MR, Grade I LVDD, RVSP 37 mmHg, RAP 15 Laboratory Tests Test 05/24/18 05:32 White Blood Count 3.7 K/UL (4.8-10.8) #L Red Blood Count 4.29 M/UL (4.70-6.10) L Hemoglobin 12.6 G/DL (14.2-18.0) L Hematocrit 38.2 % (42.0-52.0) L Mean Corpuscular Volume 89 FL (80-99) Mean Corpuscular Hemoglobin 29.4 PG (27.0-31.0) Mean Corpuscular Hemoglobin Concent 33.1 G/DL (32.0-36.0) Red Cell Distribution Width 13.1 % (11.6-14.8) Platelet Count 198 K/UL (150-450) Mean Platelet Volume 8.9 FL (6.5-10.1) Neutrophils (%) (Auto) 51.6 % (45.0-75.0) Lymphocytes (%) (Auto) 31.7 % (20.0-45.0) Monocytes (%) (Auto) 9.3 % (1.0-10.0) Eosinophils (%) (Auto) 5.4 % (0.0-3.0) H Basophils (%) (Auto) 2.0 % (0.0-2.0) Sodium Level 141 MMOL/L (136-145) Potassium Level 4.2 MMOL/L (3.5-5.1) Chloride Level 108 MMOL/L (98-107) H Carbon Dioxide Level 26 MMOL/L (21-32) Anion Gap 7 mmol/L (5-15) Blood Urea Nitrogen 18 mg/dL (7-18) Creatinine 1.1 MG/DL (0.55-1.30) Estimat Glomerular Filtration Rate > 60 mL/min (>60) Glucose Level 105 MG/DL (74-106) Calcium Level 8.8 MG/DL (8.5-10.1) Total Bilirubin 0.4 MG/DL (0.2-1.0) Aspartate Amino Transf (AST/SGOT) 14 U/L (15-37) L Alanine Aminotransferase (ALT/SGPT) 16 U/L (12-78) Alkaline Phosphatase 38 U/L (46-116) L Total Protein 6.8 G/DL (6.4-8.2) Albumin 3.0 G/DL (3.4-5.0) L Globulin 3.8 g/dL Albumin/Globulin Ratio 0.8 (1.0-2.7) L Objective HEENT: Atraumatic and normocephalic. Anicteric. Pupils are equal, round, and reactive to light and accommodation. Extraocular muscles intact. NECK: JVP less than 5 cm. No carotid bruits. Carotid upstrokes 2+ bilaterally. CARDIOVASCULAR: Normal S1 and S2. Regular rate and rhythm. No murmurs, gallops, or rubs. PMI is at fourth intercostal space in the mid clavicular line. LUNGS: Clear to auscultation bilaterally. ABDOMEN: Soft, nontender, and nondistended. No hepatosplenomegaly. Positive bowel sounds. EXTREMITIES: No evidence of edema, clubbing, or cyanosis. Ki Alan MD May 24, 2018 23:44
[2018-05-25] VITALS: BP 139/88
[2018-05-25] MEDS: Morphine Sulfate 4mg/ml Inj (IV USE ONLY) IVP PRN ×4 (02:12→23:43)
[2018-05-25 04:00] VITALS: BP 139/76
--- NOTE | 2018-05-25 07:35 | NUR ---
NURSE NOTES: Report received from WILMA Echols. Pt is resting in bed, sleeping. Pt breathing is even and unlabored. No signs and symptoms of acute distress at this time. Bed placed in lowest position with brake engaged and two side rails up. Call light and side table placed within reach. Will continue to monitor and follow plan of care.
[2018-05-25 07:40] LABS: BASOPHILS % (AUTO) 3.4 % (0.0-2.0); EOSINOPHILS % (AUTO) 5.9 % (0.0-3.0); HEMATOCRIT 37.9 % (42.0-52.0); HEMOGLOBIN 12.8 G/DL (14.2-18.0); LYMPHOCYTES % (AUTO) 30.1 % (20.0-45.0); MEAN CORPUSCULAR VOLUME 89 FL (80-99); MONOCYTES % (AUTO) 11.3 % (1.0-10.0); NEUTROPHILS % (AUTO) 49.3 % (45.0-75.0); PLATELET COUNT 190 K/UL (150-450); RED BLOOD COUNT 4.28 M/UL (4.70-6.10); RED CELL DISTRIBUTION WIDTH 13.3 % (11.6-14.8); WHITE BLOOD COUNT 3.6 K/UL (4.8-10.8)
[2018-05-25 08:00] VITALS: BP 138/81
[2018-05-25 08:16] LABS: ALANINE AMINOTRANSFERASE 14 U/L (12-78); ALBUMIN 2.9 G/DL (3.4-5.0); ALBUMIN/GLOBULIN RATIO 0.7 (1.0-2.7); ALKALINE PHOSPHATASE 37 U/L (46-116); ANION GAP 9 mmol/L (5-15); ASPARTATE AMINO TRANSFERASE 17 U/L (15-37); BILIRUBIN,TOTAL 0.3 MG/DL (0.2-1.0); BLOOD UREA NITROGEN 17 mg/dL (7-18); CALCIUM 8.8 MG/DL (8.5-10.1); CARBON DIOXIDE 22 MMOL/L (21-32); CHLORIDE 108 MMOL/L (98-107); POTASSIUM 4.3 MMOL/L (3.5-5.1); SODIUM 139 MMOL/L (136-145)
[2018-05-25] MEDS: Bactrim SS Tab ORAL SCH (08:30)
[2018-05-25] MEDS: Pantoprazole Inj IVP SCH (08:30)
[2018-05-25] MEDS: Lisinopril 2.5mg tab ORAL SCH (08:31)
[2018-05-25] MEDS: Heparin 5000 units/ml inj SUBQ SCH ×2 (08:31→22:01)
--- NOTE | 2018-05-25 11:56 | General Progress Note ---
Assessment/Plan Assessment/Plan S: I have pain O: complains of persistent pain in left shoulder and chest PHYSICAL EXAMINATION: HEAD AND NECK: Atraumatic and normocephalic. CHEST: Clear to auscultation. HEART: S1 and S2. Regular rate and rhythm. ABDOMEN: Soft. No organomegaly. MUSCULOSKELETAL: No gross focal motor deficit. NEUROLOGIC: The patient is awake, alert, and oriented x3. Meds: reviewed and reconciled ASSESSMENT: 1. Acute coronary syndrome, 2. Hypertension. 3. HIV. 4. GI and DVT prophylaxes. PLAN OF CARE: Pending Cardiac workup Ok to restart out patient HIV medication Subjective Allergies: Coded Allergies: No Known Allergies (Verified , 11/17/08) Objective Last 24 Hour Vital Signs Date Time Temp Pulse Resp B/P (MAP) Pulse Ox O2 Delivery O2 Flow Rate FiO2 05/25/18 09:00 Room Air 05/25/18 09:00 67 05/25/18 08:31 138/81 05/25/18 08:00 98.4 71 20 138/81 (100) 98 05/25/18 04:00 66 05/25/18 04:00 96.5 65 16 139/76 (97) 96 05/25/18 00:00 98.2 66 16 139/88 (105) 100 05/25/18 00:00 66 05/24/18 21:00 Room Air 05/24/18 20:00 98.3 69 17 129/71 (90) 100 05/24/18 20:00 68 05/24/18 16:00 64 05/24/18 16:00 97.4 68 20 128/75 (92) 100 05/24/18 12:00 98.9 63 21 133/80 (97) 100 05/24/18 12:00 67 Intake and Output 05/24/18 05/25/18 19:00 07:00 # Voids 4 2 Laboratory Tests 05/25/18 05:51: White Blood Count 3.6L, Red Blood Count 4.28L, Hemoglobin 12.8L, Hematocrit 37.9L, Mean Corpuscular Volume 89, Mean Corpuscular Hemoglobin 30.0, Mean Corpuscular Hemoglobin Concent 33.9, Red Cell Distribution Width 13.3, Platelet Count 190, Mean Platelet Volume 8.6, Neutrophils (%) (Auto) 49.3, Lymphocytes (% ) (Auto) 30.1, Monocytes (%) (Auto) 11.3H, Eosinophils (%) (Auto) 5.9H, Basophils (%) (Auto) 3.4H, Sodium Level 139, Potassium Level 4.3, Chloride Level 108H, Carbon Dioxide Level 22, Anion Gap 9, Blood Urea Nitrogen 17, Creatinine 1.0, Estimat Glomerular Filtration Rate > 60, Glucose Level 93, Calcium Level 8.8, Total Bilirubin 0.3, Aspartate Amino Transf (AST/SGOT) 17, Alanine Aminotransferase (ALT/SGPT) 14, Alkaline Phosphatase 37L, Total Protein 6.8, Albumin 2.9L, Globulin 3.9, Albumin/Globulin Ratio 0.7L Height (Feet): 6 Height (Inches): 3.00 Weight (Pounds): 230 Dontae Irby MD May 25, 2018 11:56
[2018-05-25 12:00] VITALS: BP 132/80
--- NOTE | 2018-05-25 12:45 | NUR ---
NURSE NOTES: Follow up with Dr. Espino regarding patient's HIV medications. Dr. Espino ordered Truvada 200/300 and dolutegravir 50 mg, per pharmacy they will start these medication from tomorrow.
[2018-05-25] MEDS: Docusate 100mg cap ORAL SCH ×2 (13:24→18:00)
--- NOTE | 2018-05-25 15:54 | Infectious Diseases Prog Note ---
Assessment/Plan Problems: (1) HIV disease Assessment & Plan: patient is unable to get his HIV home meds with biktarvy , so we will continue Truvada and dolutegravir , and continue Bactrim for PJP prophylaxis , await screening him for syphilis , and viral load and CD4 counts , will screen for hepatitis too (2) Non-STEMI (non-ST elevated myocardial infarction) Assessment & Plan: continue tele monitor and troponin check, cardiology is following (3) Cocaine abuse Assessment & Plan: recommend counseling and rehabilitation Subjective Constitutional: Reports: no symptoms HEENT: Reports: no symptoms Respiratory: Reports: no symptoms Breasts: Reports: no symptoms Cardiovascular: Reports: chest pain Gastrointestinal/Abdominal: Reports: no symptoms Genitourinary: Reports: no symptoms Neurologic: Reports: no symptoms Psychiatric: Reports: anxiety Skin: Reports: no symptoms Endocrine: Reports: no symptoms Hematologic: Reports: no symptoms Musculoskeletal: Reports: no symptoms Allergies: Coded Allergies: No Known Allergies (Verified , 11/17/08) Objective Vital Signs Last 24 Hour Vital Signs Date Time Temp Pulse Resp B/P (MAP) Pulse Ox O2 Delivery O2 Flow Rate FiO2 05/25/18 12:00 98.4 67 20 132/80 (97) 100 05/25/18 12:00 66 05/25/18 09:00 Room Air 05/25/18 09:00 67 05/25/18 08:31 138/81 05/25/18 08:00 98.4 71 20 138/81 (100) 98 05/25/18 04:00 66 05/25/18 04:00 96.5 65 16 139/76 (97) 96 05/25/18 00:00 98.2 66 16 139/88 (105) 100 05/25/18 00:00 66 05/24/18 21:00 Room Air 05/24/18 20:00 98.3 69 17 129/71 (90) 100 05/24/18 20:00 68 05/24/18 16:00 64 05/24/18 16:00 97.4 68 20 128/75 (92) 100 Height (Feet): 6 Height (Inches): 3.00 Weight (Pounds): 230 General Appearance: WD/WN, no acute distress HEENT: normocephalic, atraumatic, anicteric, mucous membranes moist, PERRL, EOMI, pharynx normal, supple, no JVD Respiratory/Chest: chest wall non-tender, lungs clear, normal breath sounds, no respiratory distress, no accessory muscle use Cardiovascular: normal peripheral pulses, normal rate, regular rhythm, no gallop/murmur, no JVD Abdomen: normal bowel sounds, soft, non tender, no organomegaly, non distended , no mass, no scars Extremities: no cyanosis, no clubbing Skin: no rash, no lesions, no ulcers 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 Complete 05/23/18 04:30 Rectum - Final NO CARBAPENEM-RESISTANT ENTEROBACTERI... Complete 05/23/18 04:30 Rectum VRE Culture - Final NO VANCOMYCIN RESISTANT ENTEROCOCCUS ... Complete Laboratory Tests Test 05/25/18 05:51 White Blood Count 3.6 K/UL (4.8-10.8) L Red Blood Count 4.28 M/UL (4.70-6.10) L Hemoglobin 12.8 G/DL (14.2-18.0) L Hematocrit 37.9 % (42.0-52.0) L Mean Corpuscular Volume 89 FL (80-99) Mean Corpuscular Hemoglobin 30.0 PG (27.0-31.0) Mean Corpuscular Hemoglobin Concent 33.9 G/DL (32.0-36.0) Red Cell Distribution Width 13.3 % (11.6-14.8) Platelet Count 190 K/UL (150-450) Mean Platelet Volume 8.6 FL (6.5-10.1) Neutrophils (%) (Auto) 49.3 % (45.0-75.0) Lymphocytes (%) (Auto) 30.1 % (20.0-45.0) Monocytes (%) (Auto) 11.3 % (1.0-10.0) H Eosinophils (%) (Auto) 5.9 % (0.0-3.0) H Basophils (%) (Auto) 3.4 % (0.0-2.0) H Sodium Level 139 MMOL/L (136-145) Potassium Level 4.3 MMOL/L (3.5-5.1) Chloride Level 108 MMOL/L (98-107) H Carbon Dioxide Level 22 MMOL/L (21-32) Anion Gap 9 mmol/L (5-15) Blood Urea Nitrogen 17 mg/dL (7-18) Creatinine 1.0 MG/DL (0.55-1.30) Estimat Glomerular Filtration Rate > 60 mL/min (>60) Glucose Level 93 MG/DL (74-106) Calcium Level 8.8 MG/DL (8.5-10.1) Total Bilirubin 0.3 MG/DL (0.2-1.0) Aspartate Amino Transf (AST/SGOT) 17 U/L (15-37) Alanine Aminotransferase (ALT/SGPT) 14 U/L (12-78) Alkaline Phosphatase 37 U/L (46-116) L Total Protein 6.8 G/DL (6.4-8.2) Albumin 2.9 G/DL (3.4-5.0) L Globulin 3.9 g/dL Albumin/Globulin Ratio 0.7 (1.0-2.7) L Current Medications Medications (Trade) Dose Ordered Sig/Sean Route PRN Reason Start Time Stop Time Status Last Admin Dose Admin Acetaminophen (Tylenol) 650 mg Q6H PRN ORAL Mild Pain/Temp > 100.5 05/23/18 05:30 06/22/18 05:29 Aspirin (ASA) 325 mg DAILY ORAL 05/23/18 09:00 06/22/18 08:59 05/25/18 08:30 Docusate Sodium (Colace) 100 mg THREE TIMES A DAY ORAL 05/25/18 13:00 06/24/18 12:59 05/25/18 13:24 Dolutegravir Sodium (Tivicay) 50 mg DAILY ORAL 05/26/18 09:00 06/25/18 08:59 Emtricitabine/ Tenofovir (Truvada 200/ 300mg) 1 tab DAILY ORAL 05/26/18 09:00 06/25/18 08:59 Heparin Sodium (Porcine) (Heparin 5000 units/ml) 5,000 units EVERY 12 HOURS SUBQ 05/23/18 09:00 06/22/18 08:59 05/24/18 08:45 Lisinopril (Zestril) 5 mg DAILY ORAL 05/23/18 20:30 06/22/18 20:29 05/25/18 08:31 Morphine Sulfate (Morphine Sulfate) 2 mg Q6H PRN IVP For Pain 05/23/18 05:30 05/30/18 05:29 05/25/18 08:37 Ondansetron HCl (Zofran) 4 mg Q6H PRN IVP Nausea & Vomiting 05/23/18 05:30 06/22/18 05:29 Pantoprazole (Protonix) 40 mg DAILY IVP 05/23/18 09:00 06/22/18 08:59 05/25/18 08:30 Temazepam (Restoril) 15 mg HSPRN PRN ORAL Insomnia 05/23/18 05:30 05/30/18 05:29 05/24/18 21:10 Trimethoprim/ Sulfamethoxazole (Bactrim Single Strength) 1 tab Q24HRS ORAL 05/25/18 09:00 06/01/18 08:59 05/25/18 08:30 Mady Espino M.D. May 25, 2018 15:54
[2018-05-25 16:00] VITALS: BP 125/98
--- NOTE | 2018-05-25 17:09 | Cardiology Progress Note ---
Assessment/Plan Assessment/Plan 1. Chest pain following cocaine use. Acute myocardial infarction is ruled out. 12-lead electrocardiogram does not show any acute ST and T-wave abnormalities. Myocardial perfusion imaging study showed no evidence of ischemia. 2. History of HIV disease. 3. History of cocaine abuse, avoid B-blockers. 4. Dyslipidemia Subjective Subjective Sinus rhythm at rate of 67. s/p nuclear stress test. Objective Last 24 Hour Vital Signs Date Time Temp Pulse Resp B/P (MAP) Pulse Ox O2 Delivery O2 Flow Rate FiO2 05/25/18 12:00 98.4 67 20 132/80 (97) 100 05/25/18 12:00 66 05/25/18 09:00 Room Air 05/25/18 09:00 67 05/25/18 08:31 138/81 05/25/18 08:00 98.4 71 20 138/81 (100) 98 05/25/18 04:00 66 05/25/18 04:00 96.5 65 16 139/76 (97) 96 05/25/18 00:00 98.2 66 16 139/88 (105) 100 05/25/18 00:00 66 05/24/18 21:00 Room Air 05/24/18 20:00 98.3 69 17 129/71 (90) 100 05/24/18 20:00 68 Intake and Output 05/24/18 05/25/18 18:59 06:59 # Voids 4 2 2D Echo: EF 55%, JACQUELIN, Mild LVH, Mo AR, MIld MR, Grade I LVDD, RVSP 37 mmHg, RAP 15 Laboratory Tests Test 05/25/18 05:51 White Blood Count 3.6 K/UL (4.8-10.8) L Red Blood Count 4.28 M/UL (4.70-6.10) L Hemoglobin 12.8 G/DL (14.2-18.0) L Hematocrit 37.9 % (42.0-52.0) L Mean Corpuscular Volume 89 FL (80-99) Mean Corpuscular Hemoglobin 30.0 PG (27.0-31.0) Mean Corpuscular Hemoglobin Concent 33.9 G/DL (32.0-36.0) Red Cell Distribution Width 13.3 % (11.6-14.8) Platelet Count 190 K/UL (150-450) Mean Platelet Volume 8.6 FL (6.5-10.1) Neutrophils (%) (Auto) 49.3 % (45.0-75.0) Lymphocytes (%) (Auto) 30.1 % (20.0-45.0) Monocytes (%) (Auto) 11.3 % (1.0-10.0) H Eosinophils (%) (Auto) 5.9 % (0.0-3.0) H Basophils (%) (Auto) 3.4 % (0.0-2.0) H Sodium Level 139 MMOL/L (136-145) Potassium Level 4.3 MMOL/L (3.5-5.1) Chloride Level 108 MMOL/L (98-107) H Carbon Dioxide Level 22 MMOL/L (21-32) Anion Gap 9 mmol/L (5-15) Blood Urea Nitrogen 17 mg/dL (7-18) Creatinine 1.0 MG/DL (0.55-1.30) Estimat Glomerular Filtration Rate > 60 mL/min (>60) Glucose Level 93 MG/DL (74-106) Calcium Level 8.8 MG/DL (8.5-10.1) Total Bilirubin 0.3 MG/DL (0.2-1.0) Aspartate Amino Transf (AST/SGOT) 17 U/L (15-37) Alanine Aminotransferase (ALT/SGPT) 14 U/L (12-78) Alkaline Phosphatase 37 U/L (46-116) L Total Protein 6.8 G/DL (6.4-8.2) Albumin 2.9 G/DL (3.4-5.0) L Globulin 3.9 g/dL Albumin/Globulin Ratio 0.7 (1.0-2.7) L Microbiology Date/Time Source Procedure Growth Status 05/23/18 04:30 Nasal Nares MRSA Culture - Final NO METHICILLIN RESISTANT STAPH AUREUS... Complete 05/23/18 04:30 Rectum - Final NO CARBAPENEM-RESISTANT ENTEROBACTERI... Complete 05/23/18 04:30 Rectum VRE Culture - Final NO VANCOMYCIN RESISTANT ENTEROCOCCUS ... Complete Objective HEENT: Atraumatic and normocephalic. Anicteric. Pupils are equal, round, and reactive to light and accommodation. Extraocular muscles intact. NECK: JVP less than 5 cm. No carotid bruits. Carotid upstrokes 2+ bilaterally. CARDIOVASCULAR: Normal S1 and S2. Regular rate and rhythm. No murmurs, gallops, or rubs. PMI is at fourth intercostal space in the mid clavicular line. LUNGS: Clear to auscultation bilaterally. ABDOMEN: Soft, nontender, and nondistended. No hepatosplenomegaly. Positive bowel sounds. EXTREMITIES: No evidence of edema, clubbing, or cyanosis. Ki Alan MD May 25, 2018 17:09
--- NOTE | 2018-05-25 19:26 | NUR ---
NURSE NOTES: Received report from WILMA Hou. Patient is asleep lying semi-schaefer's; resting comfortably. Arousable to verbal and tactile stimuli. No signs of acute distress noted; complains of pain. AOx4; able to make needs known. Ambulates independently. Checked IV site; patent and flushed. No erythema, bleeding, or infiltration noted. Bed at lowest position, brakes on, siderails up x2. Call light within reach. Will continue to monitor.
--- NOTE | 2018-05-25 19:28 | NUR ---
HAND-OFF: Report given to WILMA Andrade.
[2018-05-25 20:00] VITALS: BP 142/68
[2018-05-26] VITALS: BP 111/59
--- NOTE | 2018-05-26 03:29 | NUR ---
NURSE NOTES: Patient is asleep lying semi-schaefer's; resting comfortably. No signs of acute distress or pain noted at this time.
[2018-05-26 04:00] VITALS: BP 140/70
[2018-05-26] MEDS: Morphine Sulfate 4mg/ml Inj (IV USE ONLY) IVP PRN ×3 (06:01→19:51)
--- NOTE | 2018-05-26 07:08 | NUR ---
HAND-OFF: Report given to WILMA Hou. Patient is awake lying semi-schaefer's; resting comfortably. In stable condition.
--- NOTE | 2018-05-26 07:09 | NUR ---
NURSE NOTES: Report received from WILMA Andrade. Pt is resting in bed, in semi-schaefer position. Pt is awake, alert, and oriented x4. Pt breathing is even and unlabored in room air. No signs and symptoms of acute distress at this time. IV site noted to be asymptomatic, patent, and intact. Bed placed in lowest position with brake engaged and two side rails up. Call light and side table placed within reach. Will continue to monitor and follow plan of care.
[2018-05-26 07:33] LABS: BASOPHILS % (AUTO) 1.7 % (0.0-2.0); EOSINOPHILS % (AUTO) 5.2 % (0.0-3.0); HEMOGLOBIN 13.8 G/DL (14.2-18.0); MEAN CORPUSCULAR VOLUME 89 FL (80-99); MONOCYTES % (AUTO) 8.3 % (1.0-10.0); NEUTROPHILS % (AUTO) 51.7 % (45.0-75.0); PLATELET COUNT 212 K/UL (150-450); RED BLOOD COUNT 4.62 M/UL (4.70-6.10); RED CELL DISTRIBUTION WIDTH 13.1 % (11.6-14.8); WHITE BLOOD COUNT 4.4 K/UL (4.8-10.8)
[2018-05-26 08:00] VITALS: BP 139/79
[2018-05-26 08:16] LABS: ALANINE AMINOTRANSFERASE 23 U/L (12-78); ALBUMIN 3.5 G/DL (3.4-5.0); ALBUMIN/GLOBULIN RATIO 0.8 (1.0-2.7); ALKALINE PHOSPHATASE 44 U/L (46-116); ANION GAP 10 mmol/L (5-15); ASPARTATE AMINO TRANSFERASE 18 U/L (15-37); BILIRUBIN,TOTAL 0.3 MG/DL (0.2-1.0); BLOOD UREA NITROGEN 17 mg/dL (7-18); CALCIUM 9.1 MG/DL (8.5-10.1); CARBON DIOXIDE 24 MMOL/L (21-32); CHLORIDE 106 MMOL/L (98-107); POTASSIUM 4.1 MMOL/L (3.5-5.1); SODIUM 140 MMOL/L (136-145)
[2018-05-26] MEDS: Heparin 5000 units/ml inj SUBQ SCH ×2 (09:00→20:12)
--- NOTE | 2018-05-26 09:15 | NUR ---
CASE MANAGEMENT:REVIEW 05/26/2018 SI: ACS. HTN. HIV T 98.2 HR 68 RR 20 B/P 139/79 SATS 97% ON RA WBC 4.4 ALP 44 IS: HAART REGIMEN BACTRIM PO QD LISINOPRIL PO QD ASA PO QD IV PROTONIX QD HEPARIN SQ Q12 IV MORPHINE PRN PAIN : TELEMETRY STATUS
[2018-05-26] MEDS: Docusate 100mg cap ORAL SCH ×3 (09:22→17:10)
[2018-05-26] MEDS: Bactrim SS Tab ORAL SCH (09:22)
[2018-05-26] MEDS: Pantoprazole Inj IVP SCH (09:22)
[2018-05-26] MEDS: Dolutegravir Sodium 50mg tab ORAL SCH (09:22)
[2018-05-26] MEDS: Lisinopril 2.5mg tab ORAL SCH (09:23)
[2018-05-26 12:00] VITALS: BP 144/66
--- NOTE | 2018-05-26 12:30 | General Progress Note ---
Assessment/Plan Assessment/Plan S: I have pain O: complains of persistent pain in left shoulder and chest PHYSICAL EXAMINATION: HEAD AND NECK: Atraumatic and normocephalic. CHEST: Clear to auscultation. HEART: S1 and S2. Regular rate and rhythm. ABDOMEN: Soft. No organomegaly. MUSCULOSKELETAL: No gross focal motor deficit. NEUROLOGIC: The patient is awake, alert, and oriented x3. Meds: reviewed and reconciled ASSESSMENT: 1. Acute coronary syndrome, 2. Hypertension. 3. HIV. 4. GI and DVT prophylaxes. PLAN OF CARE: Pending Cardiac workup Ok to restart out patient HIV medication Subjective Allergies: Coded Allergies: No Known Allergies (Verified , 11/17/08) Objective Last 24 Hour Vital Signs Date Time Temp Pulse Resp B/P (MAP) Pulse Ox O2 Delivery O2 Flow Rate FiO2 05/26/18 12:00 98.7 66 20 144/66 (92) 100 05/26/18 09:23 139/79 05/26/18 09:00 Room Air 05/26/18 08:00 98.2 68 20 139/79 (99) 97 05/26/18 08:00 62 05/26/18 04:00 98.3 70 20 140/70 (93) 98 05/26/18 04:00 64 05/26/18 00:00 71 05/26/18 00:00 98.3 67 20 111/59 (76) 95 05/25/18 21:00 Room Air 05/25/18 20:00 75 05/25/18 20:00 98.8 72 20 142/68 (92) 98 05/25/18 16:00 98.7 63 20 125/98 (107) 100 05/25/18 16:00 66 Intake and Output 05/25/18 05/26/18 19:00 07:00 Intake Total 1050 ml 360 ml Balance 1050 ml 360 ml Intake Oral 1050 ml 360 ml # Voids 3 3 Laboratory Tests 05/26/18 07:05: White Blood Count 4.4L, Red Blood Count 4.62L, Hemoglobin 13.8L, Hematocrit 41.0L, Mean Corpuscular Volume 89, Mean Corpuscular Hemoglobin 29.9, Mean Corpuscular Hemoglobin Concent 33.7, Red Cell Distribution Width 13.1, Platelet Count 212, Mean Platelet Volume 8.7, Neutrophils (%) (Auto) 51.7, Lymphocytes (% ) (Auto) 33.0, Monocytes (%) (Auto) 8.3, Eosinophils (%) (Auto) 5.2H, Basophils (%) (Auto) 1.7, Sodium Level 140, Potassium Level 4.1, Chloride Level 106, Carbon Dioxide Level 24, Anion Gap 10, Blood Urea Nitrogen 17, Creatinine 1.0, Estimat Glomerular Filtration Rate > 60, Glucose Level 97, Calcium Level 9.1, Total Bilirubin 0.3, Aspartate Amino Transf (AST/SGOT) 18, Alanine Aminotransferase (ALT/SGPT) 23, Alkaline Phosphatase 44L, Total Protein 7.7, Albumin 3.5, Globulin 4.2, Albumin/Globulin Ratio 0.8L Height (Feet): 6 Height (Inches): 3.00 Weight (Pounds): 230 Dontae Irby MD May 26, 2018 12:30
[2018-05-26 16:00] VITALS: BP 130/81
--- NOTE | 2018-05-26 16:08 | Infectious Diseases Prog Note ---
Assessment/Plan Problems: (1) HIV disease Assessment & Plan: patient is unable to get his HIV home meds with biktarvy , so we will continue Truvada and dolutegravir while he is in hospital , continue Bactrim for PJP prophylaxis , screening for syphilis is negative . await viral load and CD4 counts , will screen for hepatitis too (2) Non-STEMI (non-ST elevated myocardial infarction) Assessment & Plan: continue tele monitor and troponin check, cardiology is following (3) Cocaine abuse Assessment & Plan: recommend counseling and rehabilitation Subjective Constitutional: Reports: no symptoms HEENT: Reports: no symptoms Respiratory: Reports: no symptoms Breasts: Reports: no symptoms Cardiovascular: Reports: chest pain Gastrointestinal/Abdominal: Reports: no symptoms Genitourinary: Reports: no symptoms Neurologic: Reports: no symptoms Psychiatric: Reports: no symptoms Skin: Reports: no symptoms Endocrine: Reports: no symptoms Hematologic: Reports: no symptoms Musculoskeletal: Reports: no symptoms Allergies: Coded Allergies: No Known Allergies (Verified , 11/17/08) Objective Vital Signs Last 24 Hour Vital Signs Date Time Temp Pulse Resp B/P (MAP) Pulse Ox O2 Delivery O2 Flow Rate FiO2 05/26/18 12:00 98.7 66 20 144/66 (92) 100 05/26/18 12:00 66 05/26/18 09:23 139/79 05/26/18 09:00 Room Air 05/26/18 08:00 98.2 68 20 139/79 (99) 97 05/26/18 08:00 62 05/26/18 04:00 98.3 70 20 140/70 (93) 98 05/26/18 04:00 64 05/26/18 00:00 71 05/26/18 00:00 98.3 67 20 111/59 (76) 95 05/25/18 21:00 Room Air 05/25/18 20:00 75 05/25/18 20:00 98.8 72 20 142/68 (92) 98 Height (Feet): 6 Height (Inches): 3.00 Weight (Pounds): 230 General Appearance: WD/WN, no acute distress HEENT: normocephalic, atraumatic, anicteric, mucous membranes moist, PERRL, supple, no JVD Respiratory/Chest: chest wall non-tender, lungs clear, normal breath sounds, no respiratory distress, no accessory muscle use Cardiovascular: normal peripheral pulses, normal rate, regular rhythm, no gallop/murmur, no JVD Abdomen: normal bowel sounds, soft, non tender, no organomegaly, non distended , no mass, no scars Extremities: no cyanosis, no clubbing Skin: no rash, no lesions, no ulcers Neurologic/Psychiatric: alert, oriented x 3, responsive Lymphatic: no neck adenopathy, no groin adenopathy Musculoskeletal: normal muscle bulk, no effusion Laboratory Tests Test 05/26/18 07:05 White Blood Count 4.4 K/UL (4.8-10.8) L Red Blood Count 4.62 M/UL (4.70-6.10) L Hemoglobin 13.8 G/DL (14.2-18.0) L Hematocrit 41.0 % (42.0-52.0) L Mean Corpuscular Volume 89 FL (80-99) Mean Corpuscular Hemoglobin 29.9 PG (27.0-31.0) Mean Corpuscular Hemoglobin Concent 33.7 G/DL (32.0-36.0) Red Cell Distribution Width 13.1 % (11.6-14.8) Platelet Count 212 K/UL (150-450) Mean Platelet Volume 8.7 FL (6.5-10.1) Neutrophils (%) (Auto) 51.7 % (45.0-75.0) Lymphocytes (%) (Auto) 33.0 % (20.0-45.0) Monocytes (%) (Auto) 8.3 % (1.0-10.0) Eosinophils (%) (Auto) 5.2 % (0.0-3.0) H Basophils (%) (Auto) 1.7 % (0.0-2.0) Sodium Level 140 MMOL/L (136-145) Potassium Level 4.1 MMOL/L (3.5-5.1) Chloride Level 106 MMOL/L (98-107) Carbon Dioxide Level 24 MMOL/L (21-32) Anion Gap 10 mmol/L (5-15) Blood Urea Nitrogen 17 mg/dL (7-18) Creatinine 1.0 MG/DL (0.55-1.30) Estimat Glomerular Filtration Rate > 60 mL/min (>60) Glucose Level 97 MG/DL (74-106) Calcium Level 9.1 MG/DL (8.5-10.1) Total Bilirubin 0.3 MG/DL (0.2-1.0) Aspartate Amino Transf (AST/SGOT) 18 U/L (15-37) Alanine Aminotransferase (ALT/SGPT) 23 U/L (12-78) Alkaline Phosphatase 44 U/L (46-116) L Total Protein 7.7 G/DL (6.4-8.2) Albumin 3.5 G/DL (3.4-5.0) Globulin 4.2 g/dL Albumin/Globulin Ratio 0.8 (1.0-2.7) L Current Medications Medications (Trade) Dose Ordered Sig/Sean Route PRN Reason Start Time Stop Time Status Last Admin Dose Admin Acetaminophen (Tylenol) 650 mg Q6H PRN ORAL Mild Pain/Temp > 100.5 05/23/18 05:30 06/22/18 05:29 Aspirin (ASA) 325 mg DAILY ORAL 05/23/18 09:00 06/22/18 08:59 05/26/18 09:22 Docusate Sodium (Colace) 100 mg THREE TIMES A DAY ORAL 05/25/18 13:00 06/24/18 12:59 05/26/18 12:59 Dolutegravir Sodium (Tivicay) 50 mg DAILY ORAL 05/26/18 09:00 06/25/18 08:59 05/26/18 09:22 Emtricitabine/ Tenofovir (Truvada 200/ 300mg) 1 tab DAILY ORAL 05/26/18 09:00 06/25/18 08:59 05/26/18 09:23 Heparin Sodium (Porcine) (Heparin 5000 units/ml) 5,000 units EVERY 12 HOURS SUBQ 05/23/18 09:00 06/22/18 08:59 05/25/18 22:01 Lisinopril (Zestril) 5 mg DAILY ORAL 05/23/18 20:30 06/22/18 20:29 05/26/18 09:23 Morphine Sulfate (Morphine Sulfate) 2 mg Q6H PRN IVP For Pain 05/23/18 05:30 05/30/18 05:29 05/26/18 13:00 Ondansetron HCl (Zofran) 4 mg Q6H PRN IVP Nausea & Vomiting 05/23/18 05:30 06/22/18 05:29 Pantoprazole (Protonix) 40 mg DAILY IVP 05/23/18 09:00 06/22/18 08:59 05/26/18 09:22 Temazepam (Restoril) 15 mg HSPRN PRN ORAL Insomnia 05/23/18 05:30 05/30/18 05:29 05/25/18 22:01 Trimethoprim/ Sulfamethoxazole (Bactrim Single Strength) 1 tab Q24HRS ORAL 05/25/18 09:00 06/01/18 08:59 05/26/18 09:22 Mady Espino M.D. May 26, 2018 16:08
--- NOTE | 2018-05-26 19:10 | NUR ---
HAND-OFF: Report given to WILMA Andrade.
--- NOTE | 2018-05-26 19:15 | NUR ---
NURSE NOTES: Received report from WILMA Hou. Patient is awake lying semi-schaefer's watching TV; resting comfortably. No signs of acute distress noted; complains of pain. AOx4; able to make needs known. Ambulates independently. Checked IV site; patent and flushed. No erythema, bleeding, or infiltration noted. Bed at lowest position, brakes on, siderails up x2. Call light within reach. Will continue to monitor.
[2018-05-26 20:00] VITALS: BP 137/99
--- NOTE | 2018-05-26 20:07 | Cardiology Progress Note ---
Assessment/Plan Assessment/Plan 1. Chest pain following cocaine use. Acute myocardial infarction is ruled out. 12-lead electrocardiogram does not show any acute ST and T-wave abnormalities. Myocardial perfusion imaging study showed no evidence of ischemia. 2. History of HIV disease. 3. History of cocaine abuse, avoid B-blockers. 4. Dyslipidemia, continue atorvastatin. Subjective Subjective Sinus rhythm at rate of 68. Objective Last 24 Hour Vital Signs Date Time Temp Pulse Resp B/P (MAP) Pulse Ox O2 Delivery O2 Flow Rate FiO2 05/26/18 16:00 68 05/26/18 16:00 98.7 66 20 130/81 (97) 99 05/26/18 12:00 98.7 66 20 144/66 (92) 100 05/26/18 12:00 66 05/26/18 09:23 139/79 05/26/18 09:00 Room Air 05/26/18 08:00 98.2 68 20 139/79 (99) 97 05/26/18 08:00 62 05/26/18 04:00 98.3 70 20 140/70 (93) 98 05/26/18 04:00 64 05/26/18 00:00 71 05/26/18 00:00 98.3 67 20 111/59 (76) 95 05/25/18 21:00 Room Air Intake and Output 05/25/18 05/26/18 18:59 06:59 Intake Total 1050 ml 360 ml Balance 1050 ml 360 ml Intake Oral 1050 ml 360 ml # Voids 3 3 2D Echo: EF 55%, JACQUELIN, Mild LVH, Mo AR, MIld MR, Grade I LVDD, RVSP 37 mmHg, RAP 15 Laboratory Tests Test 05/26/18 07:05 White Blood Count 4.4 K/UL (4.8-10.8) L Red Blood Count 4.62 M/UL (4.70-6.10) L Hemoglobin 13.8 G/DL (14.2-18.0) L Hematocrit 41.0 % (42.0-52.0) L Mean Corpuscular Volume 89 FL (80-99) Mean Corpuscular Hemoglobin 29.9 PG (27.0-31.0) Mean Corpuscular Hemoglobin Concent 33.7 G/DL (32.0-36.0) Red Cell Distribution Width 13.1 % (11.6-14.8) Platelet Count 212 K/UL (150-450) Mean Platelet Volume 8.7 FL (6.5-10.1) Neutrophils (%) (Auto) 51.7 % (45.0-75.0) Lymphocytes (%) (Auto) 33.0 % (20.0-45.0) Monocytes (%) (Auto) 8.3 % (1.0-10.0) Eosinophils (%) (Auto) 5.2 % (0.0-3.0) H Basophils (%) (Auto) 1.7 % (0.0-2.0) Sodium Level 140 MMOL/L (136-145) Potassium Level 4.1 MMOL/L (3.5-5.1) Chloride Level 106 MMOL/L (98-107) Carbon Dioxide Level 24 MMOL/L (21-32) Anion Gap 10 mmol/L (5-15) Blood Urea Nitrogen 17 mg/dL (7-18) Creatinine 1.0 MG/DL (0.55-1.30) Estimat Glomerular Filtration Rate > 60 mL/min (>60) Glucose Level 97 MG/DL (74-106) Calcium Level 9.1 MG/DL (8.5-10.1) Total Bilirubin 0.3 MG/DL (0.2-1.0) Aspartate Amino Transf (AST/SGOT) 18 U/L (15-37) Alanine Aminotransferase (ALT/SGPT) 23 U/L (12-78) Alkaline Phosphatase 44 U/L (46-116) L Total Protein 7.7 G/DL (6.4-8.2) Albumin 3.5 G/DL (3.4-5.0) Globulin 4.2 g/dL Albumin/Globulin Ratio 0.8 (1.0-2.7) L Objective HEENT: Atraumatic and normocephalic. Anicteric. Pupils are equal, round, and reactive to light and accommodation. Extraocular muscles intact. NECK: JVP less than 5 cm. No carotid bruits. Carotid upstrokes 2+ bilaterally. CARDIOVASCULAR: Normal S1 and S2. Regular rate and rhythm. No murmurs, gallops, or rubs. PMI is at fourth intercostal space in the mid clavicular line. LUNGS: Clear to auscultation bilaterally. ABDOMEN: Soft, nontender, and nondistended. No hepatosplenomegaly. Positive bowel sounds. EXTREMITIES: No evidence of edema, clubbing, or cyanosis. Ki Alan MD May 26, 2018 20:07
[2018-05-26] MEDS ORDERED: Atorvastatin 20mg tab ORAL SCH (22:30)
--- NOTE | 2018-05-26 23:17 | Cardiology Progress Note ---
Assessment/Plan Assessment/Plan 1. Chest pain following cocaine use. Acute myocardial infarction is ruled out. 12-lead electrocardiogram does not show any acute ST and T-wave abnormalities. Myocardial perfusion imaging study showed no evidence of ischemia. 2. History of HIV disease. 3. History of cocaine abuse, avoid B-blockers. 4. Dyslipidemia, continue atorvastatin. Subjective Subjective Sinus rhythm at rate of 68. Objective Last 24 Hour Vital Signs Date Time Temp Pulse Resp B/P (MAP) Pulse Ox O2 Delivery O2 Flow Rate FiO2 05/26/18 21:00 Room Air 05/26/18 20:00 98.0 66 20 137/99 (112) 96 05/26/18 20:00 64 05/26/18 16:00 68 05/26/18 16:00 98.7 66 20 130/81 (97) 99 05/26/18 12:00 98.7 66 20 144/66 (92) 100 05/26/18 12:00 66 05/26/18 09:23 139/79 05/26/18 09:00 Room Air 05/26/18 08:00 98.2 68 20 139/79 (99) 97 05/26/18 08:00 62 05/26/18 04:00 98.3 70 20 140/70 (93) 98 05/26/18 04:00 64 05/26/18 00:00 71 05/26/18 00:00 98.3 67 20 111/59 (76) 95 Intake and Output 05/25/18 05/26/18 18:59 06:59 Intake Total 1050 ml 360 ml Balance 1050 ml 360 ml Intake Oral 1050 ml 360 ml # Voids 3 3 Laboratory Tests Test 05/26/18 07:05 White Blood Count 4.4 K/UL (4.8-10.8) L Red Blood Count 4.62 M/UL (4.70-6.10) L Hemoglobin 13.8 G/DL (14.2-18.0) L Hematocrit 41.0 % (42.0-52.0) L Mean Corpuscular Volume 89 FL (80-99) Mean Corpuscular Hemoglobin 29.9 PG (27.0-31.0) Mean Corpuscular Hemoglobin Concent 33.7 G/DL (32.0-36.0) Red Cell Distribution Width 13.1 % (11.6-14.8) Platelet Count 212 K/UL (150-450) Mean Platelet Volume 8.7 FL (6.5-10.1) Neutrophils (%) (Auto) 51.7 % (45.0-75.0) Lymphocytes (%) (Auto) 33.0 % (20.0-45.0) Monocytes (%) (Auto) 8.3 % (1.0-10.0) Eosinophils (%) (Auto) 5.2 % (0.0-3.0) H Basophils (%) (Auto) 1.7 % (0.0-2.0) Sodium Level 140 MMOL/L (136-145) Potassium Level 4.1 MMOL/L (3.5-5.1) Chloride Level 106 MMOL/L (98-107) Carbon Dioxide Level 24 MMOL/L (21-32) Anion Gap 10 mmol/L (5-15) Blood Urea Nitrogen 17 mg/dL (7-18) Creatinine 1.0 MG/DL (0.55-1.30) Estimat Glomerular Filtration Rate > 60 mL/min (>60) Glucose Level 97 MG/DL (74-106) Calcium Level 9.1 MG/DL (8.5-10.1) Total Bilirubin 0.3 MG/DL (0.2-1.0) Aspartate Amino Transf (AST/SGOT) 18 U/L (15-37) Alanine Aminotransferase (ALT/SGPT) 23 U/L (12-78) Alkaline Phosphatase 44 U/L (46-116) L Total Protein 7.7 G/DL (6.4-8.2) Albumin 3.5 G/DL (3.4-5.0) Globulin 4.2 g/dL Albumin/Globulin Ratio 0.8 (1.0-2.7) L Objective HEENT: Atraumatic and normocephalic. Anicteric. Pupils are equal, round, and reactive to light and accommodation. Extraocular muscles intact. NECK: JVP less than 5 cm. No carotid bruits. Carotid upstrokes 2+ bilaterally. CARDIOVASCULAR: Normal S1 and S2. Regular rate and rhythm. No murmurs, gallops, or rubs. PMI is at fourth intercostal space in the mid clavicular line. LUNGS: Clear to auscultation bilaterally. ABDOMEN: Soft, nontender, and nondistended. No hepatosplenomegaly. Positive bowel sounds. EXTREMITIES: No evidence of edema, clubbing, or cyanosis. Ki Alan MD May 26, 2018 23:17
[2018-05-27] VITALS: BP 108/62
[2018-05-27] MEDS: Morphine Sulfate 4mg/ml Inj (IV USE ONLY) IVP PRN ×2 (02:53→08:56)
--- NOTE | 2018-05-27 03:18 | NUR ---
NURSE NOTES: Administered Morphine 2mg IV PRN medication as needed for pain. Will continue to monitor patient.
[2018-05-27 04:00] VITALS: BP 132/68
--- NOTE | 2018-05-27 07:06 | NUR ---
HAND-OFF: Report given to WILMA Hou. Patient is awake lying semi-schaefer's; resting comfortably. In stable condition.
--- NOTE | 2018-05-27 07:12 | NUR ---
NURSE NOTES: Report received from WILMA Andrade. Pt is resting in bed, sleeping. Pt breathing is even and unlabored in room air. No signs and symptoms of acute distress at this time. IV site noted to be asymptomatic, intact. Bed placed in lowest position with brake engaged and two side rails up. Call light and side table placed within reach. Patient might get discharged, will follow up with employment case manager. Will continue to monitor and follow plan of care.
[2018-05-27 07:16] LABS: BASOPHILS % (AUTO) 1.5 % (0.0-2.0); EOSINOPHILS % (AUTO) 5.5 % (0.0-3.0); HEMATOCRIT 40.1 % (42.0-52.0); HEMOGLOBIN 13.3 G/DL (14.2-18.0); LYMPHOCYTES % (AUTO) 29.9 % (20.0-45.0); MEAN CORPUSCULAR VOLUME 88 FL (80-99); MONOCYTES % (AUTO) 9.8 % (1.0-10.0); NEUTROPHILS % (AUTO) 53.3 % (45.0-75.0); PLATELET COUNT 187 K/UL (150-450); RED BLOOD COUNT 4.54 M/UL (4.70-6.10); WHITE BLOOD COUNT 4.3 K/UL (4.8-10.8)
[2018-05-27 08:00] VITALS: BP 151/78
[2018-05-27] MEDS: Dolutegravir Sodium 50mg tab ORAL SCH (08:46)
[2018-05-27] MEDS: Bactrim SS Tab ORAL SCH (08:46)
[2018-05-27] MEDS: Docusate 100mg cap ORAL SCH (08:46)
[2018-05-27] MEDS: Pantoprazole Inj IVP SCH (08:47)
[2018-05-27] MEDS: Heparin 5000 units/ml inj SUBQ SCH (08:47)
[2018-05-27] MEDS: Lisinopril 2.5mg tab ORAL SCH (08:47)
[2018-05-27] MEDS ORDERED: LIPITOR20 MG ORAL (11:24)
[2018-05-27] MEDS ORDERED: LISINOPRIL5 MG ORAL (11:24)
--- NOTE | 2018-05-27 11:26 | General Progress Note ---
Assessment/Plan Assessment/Plan S: My pain is much better O: Improved pain in left shoulder and chest PHYSICAL EXAMINATION: HEAD AND NECK: Atraumatic and normocephalic. CHEST: Clear to auscultation. HEART: S1 and S2. Regular rate and rhythm. ABDOMEN: Soft. No organomegaly. MUSCULOSKELETAL: No gross focal motor deficit. NEUROLOGIC: The patient is awake, alert, and oriented x3. Meds: reviewed and reconciled ASSESSMENT: 1. Acute coronary syndrome, 2. Hypertension. 3. HIV. 4. GI and DVT prophylaxes. PLAN OF CARE: Ok to followup with PCP and Out patient ID Subjective Allergies: Coded Allergies: No Known Allergies (Verified , 11/17/08) Objective Last 24 Hour Vital Signs Date Time Temp Pulse Resp B/P (MAP) Pulse Ox O2 Delivery O2 Flow Rate FiO2 05/27/18 09:00 Room Air 05/27/18 08:47 151/78 05/27/18 08:00 98.6 65 20 151/78 (102) 99 05/27/18 04:00 64 05/27/18 04:00 98.1 71 20 132/68 (89) 99 05/27/18 00:00 61 05/27/18 00:00 98.3 63 20 108/62 (77) 99 05/26/18 21:00 Room Air 05/26/18 20:00 98.0 66 20 137/99 (112) 96 05/26/18 20:00 64 05/26/18 16:00 68 05/26/18 16:00 98.7 66 20 130/81 (97) 99 05/26/18 12:00 98.7 66 20 144/66 (92) 100 05/26/18 12:00 66 Intake and Output 05/26/18 05/27/18 19:00 07:00 Intake Total 960 ml 480 ml Output Total 1000 ml Balance 960 ml -520 ml Intake Oral 960 ml 480 ml Output Urine Total 1000 ml # Voids 2 3 Laboratory Tests 05/27/18 05:20: White Blood Count 4.3L, Red Blood Count 4.54L, Hemoglobin 13.3L, Hematocrit 40.1L, Mean Corpuscular Volume 88, Mean Corpuscular Hemoglobin 29.4, Mean Corpuscular Hemoglobin Concent 33.2, Red Cell Distribution Width 13.0, Platelet Count 187, Mean Platelet Volume 8.1, Neutrophils (%) (Auto) 53.3, Lymphocytes (% ) (Auto) 29.9, Monocytes (%) (Auto) 9.8, Eosinophils (%) (Auto) 5.5H, Basophils (%) (Auto) 1.5, Magnesium Level 2.3 Height (Feet): 6 Height (Inches): 3.00 Weight (Pounds): 230 Dontae Irby MD May 27, 2018 11:25
[2018-05-27 12:00] VITALS: BP 110/59
--- NOTE | 2018-05-27 13:22 | NUR ---
NURSE NOTES: patient discharged home with home health per Dr. Irby's order. All discharge instruction explained to patient, verbalized understanding. Patient has no military police officer in his case to notify. Patient received all his belongings.Heart monitor removed and returned to emergency spill response technician. ID band removed but patient wanted to keep it. IV removed. Patient left the hospital with the transportation provided with the hospital in stable condition.
--- NOTE | 2018-05-27 19:33 | Infectious Diseases Prog Note ---
Assessment/Plan Problems: (1) HIV disease Assessment & Plan: patient is unable to get his HIV home meds with biktarvy , so we will continue Truvada and dolutegravir while he is in hospital , continue Bactrim for PJP prophylaxis , screening for syphilis is negative . await viral load and CD4 counts , screening for hepatitis as an outpatient (2) Non-STEMI (non-ST elevated myocardial infarction) Assessment & Plan: continue tele monitor and troponin check, cardiology is following (3) Cocaine abuse Assessment & Plan: recommend counseling and rehabilitation Subjective Constitutional: Reports: no symptoms HEENT: Reports: no symptoms Respiratory: Reports: no symptoms Breasts: Reports: no symptoms Cardiovascular: Reports: no symptoms Gastrointestinal/Abdominal: Reports: no symptoms Genitourinary: Reports: no symptoms Neurologic: Reports: no symptoms Psychiatric: Reports: no symptoms Skin: Reports: no symptoms Endocrine: Reports: no symptoms Hematologic: Reports: no symptoms Musculoskeletal: Reports: no symptoms Allergies: Coded Allergies: No Known Allergies (Verified , 11/17/08) Objective Vital Signs Last 24 Hour Vital Signs Date Time Temp Pulse Resp B/P (MAP) Pulse Ox O2 Delivery O2 Flow Rate FiO2 05/27/18 12:00 97.3 63 20 110/59 (76) 97 05/27/18 09:00 Room Air 05/27/18 08:47 151/78 05/27/18 08:00 98.6 65 20 151/78 (102) 99 05/27/18 04:00 64 05/27/18 04:00 98.1 71 20 132/68 (89) 99 05/27/18 00:00 61 05/27/18 00:00 98.3 63 20 108/62 (77) 99 05/26/18 21:00 Room Air 05/26/18 20:00 98.0 66 20 137/99 (112) 96 05/26/18 20:00 64 Height (Feet): 6 Height (Inches): 3.00 Weight (Pounds): 230 General Appearance: WD/WN, no acute distress HEENT: normocephalic, atraumatic, anicteric, mucous membranes moist, PERRL Respiratory/Chest: chest wall non-tender, lungs clear, normal breath sounds, no respiratory distress, no accessory muscle use Cardiovascular: normal peripheral pulses, normal rate, regular rhythm, no gallop/murmur, no JVD Abdomen: normal bowel sounds, soft, non tender, no organomegaly, non distended , no mass, no scars Genitourinary: normal external genitalia Extremities: no cyanosis, no clubbing Skin: no rash, no lesions, no ulcers Neurologic/Psychiatric: pressure washer II-XII grossly normal, alert, oriented x 3, responsive Lymphatic: no neck adenopathy, no groin adenopathy Musculoskeletal: normal muscle bulk, no effusion Laboratory Tests Test 05/27/18 05:20 White Blood Count 4.3 K/UL (4.8-10.8) L Red Blood Count 4.54 M/UL (4.70-6.10) L Hemoglobin 13.3 G/DL (14.2-18.0) L Hematocrit 40.1 % (42.0-52.0) L Mean Corpuscular Volume 88 FL (80-99) Mean Corpuscular Hemoglobin 29.4 PG (27.0-31.0) Mean Corpuscular Hemoglobin Concent 33.2 G/DL (32.0-36.0) Red Cell Distribution Width 13.0 % (11.6-14.8) Platelet Count 187 K/UL (150-450) Mean Platelet Volume 8.1 FL (6.5-10.1) Neutrophils (%) (Auto) 53.3 % (45.0-75.0) Lymphocytes (%) (Auto) 29.9 % (20.0-45.0) Monocytes (%) (Auto) 9.8 % (1.0-10.0) Eosinophils (%) (Auto) 5.5 % (0.0-3.0) H Basophils (%) (Auto) 1.5 % (0.0-2.0) Magnesium Level 2.3 MG/DL (1.8-2.4) Mady Espino M.D. May 27, 2018 19:33
--- NOTE | 2018-05-27 22:58 | Cardiology Progress Note ---
Assessment/Plan Assessment/Plan 1. Chest pain following cocaine use. Acute myocardial infarction is ruled out. 12-lead electrocardiogram does not show any acute ST and T-wave abnormalities. Myocardial perfusion imaging study showed no evidence of ischemia. 2. History of HIV disease. 3. History of cocaine abuse, avoid B-blockers. 4. Dyslipidemia, continue atorvastatin. 5. Frequent VPC's, Mg level was 2.3, continue CCB. Subjective Subjective Sinus rhythm at rate of 63. Objective Last 24 Hour Vital Signs Date Time Temp Pulse Resp B/P (MAP) Pulse Ox O2 Delivery O2 Flow Rate FiO2 05/27/18 12:00 97.3 63 20 110/59 (76) 97 05/27/18 09:00 Room Air 05/27/18 08:47 151/78 05/27/18 08:00 98.6 65 20 151/78 (102) 99 05/27/18 04:00 64 05/27/18 04:00 98.1 71 20 132/68 (89) 99 05/27/18 00:00 61 05/27/18 00:00 98.3 63 20 108/62 (77) 99 Intake and Output 05/26/18 05/27/18 18:59 06:59 Intake Total 960 ml 480 ml Output Total 1000 ml Balance 960 ml -520 ml Intake Oral 960 ml 480 ml Output Urine Total 1000 ml # Voids 2 3 2D Echo: EF 55%, JACQUELIN, Mild LVH, Mo AR, MIld MR, Grade I LVDD, RVSP 37 mmHg, RAP 15 Laboratory Tests Test 05/27/18 05:20 White Blood Count 4.3 K/UL (4.8-10.8) L Red Blood Count 4.54 M/UL (4.70-6.10) L Hemoglobin 13.3 G/DL (14.2-18.0) L Hematocrit 40.1 % (42.0-52.0) L Mean Corpuscular Volume 88 FL (80-99) Mean Corpuscular Hemoglobin 29.4 PG (27.0-31.0) Mean Corpuscular Hemoglobin Concent 33.2 G/DL (32.0-36.0) Red Cell Distribution Width 13.0 % (11.6-14.8) Platelet Count 187 K/UL (150-450) Mean Platelet Volume 8.1 FL (6.5-10.1) Neutrophils (%) (Auto) 53.3 % (45.0-75.0) Lymphocytes (%) (Auto) 29.9 % (20.0-45.0) Monocytes (%) (Auto) 9.8 % (1.0-10.0) Eosinophils (%) (Auto) 5.5 % (0.0-3.0) H Basophils (%) (Auto) 1.5 % (0.0-2.0) Magnesium Level 2.3 MG/DL (1.8-2.4) Objective HEENT: Atraumatic and normocephalic. Anicteric. Pupils are equal, round, and reactive to light and accommodation. Extraocular muscles intact. NECK: JVP less than 5 cm. No carotid bruits. Carotid upstrokes 2+ bilaterally. CARDIOVASCULAR: Normal S1 and S2. Regular rate and rhythm. No murmurs, gallops, or rubs. PMI is at fourth intercostal space in the mid clavicular line. LUNGS: Clear to auscultation bilaterally. ABDOMEN: Soft, nontender, and nondistended. No hepatosplenomegaly. Positive bowel sounds. EXTREMITIES: No evidence of edema, clubbing, or cyanosis. Ki Alan MD May 27, 2018 22:58
--- NOTE | 2018-05-28 12:00 | Discharge Summary ---
Discharge Summary Discharge Summary _ DATE OF ADMISSION: 05/23/2018 DATE OF DISCHARGE: 05/27/2018 DISCHARGED BY: Dr Irby REASON FOR ADMISSION: 57 years old male with past medical history of coronary artery disease and HIV status, presented with acute onset of chest pain. Chest pain was localized in precordial area and radiated to left shoulder. Patient reported dizziness. Patient denied shortness of breath. Upon evaluation vital signs revealed tachycardia with heart rate 112, otherwise no fever ,pulse oximetry was stable on room air. Laboratory workup revealed no leukocytosis ,stable hemoglobin and hematocrit. Stable electrolytes . BUN 14 , creatinine 1.2 Troponin was initially negative and the second troponin - 0.505. EKG revealed no acute ST changes, Chest x-ray revealed no acute cardiopulmonary pathology. Patient was admitted for further management for workup of chest pain . CONSULTANTS: staff software engineer Dr. Edilson LOPEZ specialist Dr. Espino psychiatrist [place] [employer] COURSE: Patient admitted to telemetry floor. Cardiology consult was requested. Echocardiogram revealed preserved ejection fraction 55% with mild to moderate left ventricular hypertrophy. Moderate aortic regurgitation. Right ventricular systolic pressure of 37 consistent with mild pulmonary hypertension. Follow-up two consecutive troponin were negative. CTA of the chest with contrast revealed no obvious central pulmonary emboli. No evidence of aortic dissection or aneurysm. Mild to moderate atherosclerotic disease noted. COPD/emphysema noted. Internist closely follow. Per staff software engineer, chest pain was following cocaine use. EKG revealed no acute ST and T wave abnormalities. Patient was ruled out for acute myocardial infarction. Internist recommended myocardial perfusion imaging study to rule out obstructive coronary artery disease. Per staff software engineer , myocardial perfusion imaging study showed no evidence of ischemia. Internist recommended to avoid beta-abiola in view of cocaine abuse. Lipid panel stable. Blood pressure was managed with GAIL inhibitor. Antiplatelet therapy with aspirin and statin were continued. Pain management was addressed. DVT prophylaxis provided. Pulse oximetry was stable on room air. ID specialist closely followed. Patient was unable to provide his HIV home medication regimen. While in the hospital patient was continued with Truvada and dolutegravir Bactrim was continued for PCP prophylaxis. RPR nonreactive. Viral load , CD4 , hepatitis screening recommended as outpatient. Psychiatrist closely followed and diagnosed patient with bipolar disorder with depression and cocaine abuse. Seroquel was continued. Patient was provided with reality orientation and supportive therapy. Patient clinically improved. Chesr pain resolved. Patient was counseled on abstinence from illicit drugs. Patient was stable for discharged home. FINAL DIAGNOSES: Chest pain likely due to cocaine use. Acute coronary syndrome Hypertension Dyslipidemia Cocaine abuse HIV status Bipolar disorder with depression DISCHARGE MEDICATIONS: See Medication Reconciliation list. DISCHARGE INSTRUCTIONS: Patient was discharged home Follow up with primary care provider and ID specialist/for HIV management in one week. I have been assigned to dictate discharge summary for this account. I was not involved in the patient's management. Ca Varela NP May 28, 2018 12:00
--- NOTE | 2018-06-06 14:31 | Cardiology Report ---
APPROVED REPORT EKG Measurement Heart [id number] Sinus rhythm with premature atrial complexes Inferior infarct, age undetermined Cannot rule out Anterior infarct, age undetermined Abnormal ECG
--- NOTE | 2018-06-07 09:11 | Cardiology Report ---
APPROVED REPORT EXAM: Two-dimensional and M-mode echocardiogram with Doppler and color Doppler. INDICATION Chest Pain M-Mode DIMENSIONS LVDd5.7 (3.5-5.6cm) PWd1.5 (0.7-1.1cm) IVSs2.1 cm LVDs4.2 (2.5-4.0cm) PWs1.7 cm Moderate left ventricular enlargement by 2-D. There seems to be hypokinesis of distal septum, LV apex, and basal inferior wall. Left ventricular ejection fraction estimated to be 55 %. Anterior Echo-free space, may be due to pericardial fat or effusion. Mild to moderate left ventricular hypertrophy by 2-D. Mild bi-atrial enlargement. Right ventricular chamber size is within normal limits. Focal aortic valve sclerosis with adequate cusp excursion. Thickened mitral valve leaflets with normal excursion. Mitral annulus and aortic root calcification. Pulmonic valve not well visualized. IVC measured at 2.9 cm with slight physiologic collapse suggestive of elevated RAP. A color flow and spectral Doppler study was performed and revealed: Moderate aortic regurgitation. Mild mitral regurgitation. Mitral diastolic velocities suggest reduced left ventricular relaxation c/w mild LV diastolic dysfunction (Grade I). Trace to mild tricuspid regurgitation. Tricuspid systolic velocities suggests peak right ventricular systolic pressure of 37 mmHg, consistent with mild pulmonary hypertension.
== END 2018-05-27 13:22 | disposition home or self-care (01) | DRG 311 ==
LOC: EDBD 22:08 → EMR 22:22 → 2E 05-23 02:00 → EDBEDREQ 05-23 02:25
DX: I24.9 Acute ischemic heart disease, unspecified (principal); B20 Human immunodeficiency virus [HIV] disease; F31.30 Bipolar disorder, current episode depressed, mild or moderate severity, unspecified; R07.89 Other chest pain; F14.188 Cocaine abuse with other cocaine-induced disorder; I10 Essential (primary) hypertension; I25.10 Atherosclerotic heart disease of native coronary artery without angina pectoris; I35.1 Nonrheumatic aortic (valve) insufficiency; J44.9 Chronic obstructive pulmonary disease, unspecified; E78.5 Hyperlipidemia, unspecified
CPT/HCPCS: 36415; 71045; 71275; 78452; 80053; 80061; 82550; 82553; 83036; 83690; 83735; 84484; 85025; 87081; 93005; 93017; 93306; 94640; 94664; 96374; 96375; 99285; J2785; J7620